=== PATIENT | female | born 1945 | race Caucasian/White ===

== ENCOUNTER 2018-12-18 13:53 | Inpatient (IN) | payer MEDICARE, OTHER ==
--- NOTE | 2018-12-18 14:05 | ED ---
Altered Mental Status HPI - General Stated Complaint: Altered Mental Status Time Seen by Provider: 12/18/18 14:04 Source: RN notes reviewed, old records reviewed Limitations: altered mental status - History of Present Illness Initial Comments: This is a 71-year-old female the ER for evaluation. Patient resents today for evaluation regarding altered mental status not acting appropriately. Patient is a poor historian unable to history. EMS states there unable to get history from patient. History obtained from EMS and patient's prior charting. MD Complaint: altered mental status (As well as difficulty breathing) -: unknown Severity: severe Consistency of Symptoms: getting worse Context: COPD Associated Symptoms: shortness of breath, weakness Treatments Prior to Arrival: IV fluid - Related Data Home Medications Medication Instructions Recorded Confirmed No Known Home Medications 12/18/18 12/18/18 Allergies Allergy/AdvReac Type Severity Reaction Status Date / Time No Known Allergies Allergy Verified 12/18/18 14:37 Review of Systems ROS Statement: Those systems with pertinent positive or pertinent negative responses have been documented in the HPI. ROS Other: All systems not noted in ROS Statement are negative. General Exam Limitations: altered mental status General appearance: alert, anxious, in distress Head exam: Present: atraumatic, normocephalic, normal inspection Eye exam: Present: normal appearance, PERRL, EOMI. Absent: scleral icterus, conjunctival injection, periorbital swelling ENT exam: Present: normal exam, mucous membranes moist Neck exam: Present: normal inspection. Absent: tenderness, meningismus, lymphadenopathy Respiratory exam: Present: respiratory distress, wheezes, accessory muscle use, decreased breath sounds, prolonged expiratory. Absent: rales, rhonchi, stridor Cardiovascular Exam: Present: regular rate, normal rhythm, normal heart sounds. Absent: systolic murmur, diastolic murmur, rubs, gallop, clicks GI/Abdominal exam: Present: soft, normal bowel sounds. Absent: distended, tenderness, guarding, rebound, rigid Extremities exam: Present: normal inspection, full ROM, normal capillary refill. Absent: tenderness, pedal edema, joint swelling, calf tenderness Back exam: Present: normal inspection Neurological exam: Present: alert, oriented X3, CN II-XII intact Psychiatric exam: Present: normal affect, normal mood Skin exam: Present: warm, dry, intact, normal color. Absent: rash Course Vital Signs 12/18/18 12/18/18 12/18/18 14:00 14:14 14:29 Temperature 97.9 F Pulse Rate 95 Respiratory 16 Rate Blood Pressure 173/84 O2 Sat by Pulse 81 L 91 L 98 Oximetry 12/18/18 15:50 Temperature Pulse Rate 88 Respiratory 17 Rate Blood Pressure 148/124 O2 Sat by Pulse 95 Oximetry - Reevaluation(s) Reevaluation #1: 12/18/18 16:04 Medical record reviewed Reevaluation #2: 12/18/18 16:04 No real improvement breathing treatment Medical Decision Making - Medical Decision Making 73 female the ER for evaluation. Patient does say for evaluation regarding shortness of breath. Significant COPD, smoking history. Patient be admitted for COPD with hypoxia and altered mental status, and NSTEMI. - Lab Data Result diagrams: 12/18/18 14:55 12/18/18 14:55 Lab Results 12/18/18 12/18/18 12/18/18 Range/Units 14:55 14:55 14:55 WBC 10.4 (3.8-10.6) k/uL RBC 5.72 H (3.80-5.40) m/uL Hgb 16.2 H (11.4-16.0) gm/dL Hct 53.4 H (34.0-46.0) % MCV 93.3 (80.0-100.0) fL MCH 28.3 (25.0-35.0) pg MCHC 30.4 L (31.0-37.0) g/dL RDW 15.8 H (11.5-15.5) % Plt Count 405 (150-450) k/uL Neutrophils % 87 % Lymphocytes % 6 % Monocytes % 6 % Eosinophils % 0 % Basophils % 0 % Neutrophils # 9.0 H (1.3-7.7) k/uL Lymphocytes # 0.6 L (1.0-4.8) k/uL Monocytes # 0.6 (0-1.0) k/uL Eosinophils # 0.0 (0-0.7) k/uL Basophils # 0.0 (0-0.2) k/uL Hypochromasia Moderate Sodium 138 (137-145) mmol/L Potassium 4.2 (3.5-5.1) mmol/L Chloride 94 L (98-107) mmol/L Carbon Dioxide 38 H (22-30) mmol/L Anion Gap 6 mmol/L BUN 20 H (7-17) mg/dL Creatinine 0.34 L (0.52-1.04) mg/dL Est GFR (CKD-EPI)AfAm >90 (>60 ml/min/1.73 sqM) Est GFR (CKD-EPI)NonAf >90 (>60 ml/min/1.73 sqM) Glucose 110 H (74-99) mg/dL Calcium 9.2 (8.4-10.2) mg/dL Magnesium 1.8 (1.6-2.3) mg/dL Total Bilirubin 1.2 (0.2-1.3) mg/dL AST 19 (14-36) U/L ALT 19 (9-52) U/L Alkaline Phosphatase 63 (38-126) U/L Troponin I (0.000-0.034) ng/mL NT-Pro-B Natriuret Pep 3750 pg/mL Total Protein 6.5 (6.3-8.2) g/dL Albumin 2.9 L (3.5-5.0) g/dL 12/18/18 Range/Units 14:55 WBC (3.8-10.6) k/uL RBC (3.80-5.40) m/uL Hgb (11.4-16.0) gm/dL Hct (34.0-46.0) % MCV (80.0-100.0) fL MCH (25.0-35.0) pg MCHC (31.0-37.0) g/dL RDW (11.5-15.5) % Plt Count (150-450) k/uL Neutrophils % % Lymphocytes % % Monocytes % % Eosinophils % % Basophils % % Neutrophils # (1.3-7.7) k/uL Lymphocytes # (1.0-4.8) k/uL Monocytes # (0-1.0) k/uL Eosinophils # (0-0.7) k/uL Basophils # (0-0.2) k/uL Hypochromasia Sodium (137-145) mmol/L Potassium (3.5-5.1) mmol/L Chloride (98-107) mmol/L Carbon Dioxide (22-30) mmol/L Anion Gap mmol/L BUN (7-17) mg/dL Creatinine (0.52-1.04) mg/dL Est GFR (CKD-EPI)AfAm (>60 ml/min/1.73 sqM) Est GFR (CKD-EPI)NonAf (>60 ml/min/1.73 sqM) Glucose (74-99) mg/dL Calcium (8.4-10.2) mg/dL Magnesium (1.6-2.3) mg/dL Total Bilirubin (0.2-1.3) mg/dL AST (14-36) U/L ALT (9-52) U/L Alkaline Phosphatase (38-126) U/L Troponin I 0.296 H* (0.000-0.034) ng/mL NT-Pro-B Natriuret Pep pg/mL Total Protein (6.3-8.2) g/dL Albumin (3.5-5.0) g/dL - EKG Data -: EKG Interpreted by Me (EKG shows sinus rhythm rate of 94, ID [id number], QRS 84, QTc 480) - Radiology Data Radiology results: report reviewed (Chest x-rays negative for acute disease), image reviewed Critical Care Time Critical Care Time: Yes Total Critical Care Time: 31 Disposition Clinical Impression: Altered mental status, Hypoxia, Acute exacerbation of COPD with asthma, Elevated troponin Disposition: ADMITTED IP TO THIS HOSP Condition: Serious Is patient prescribed a controlled substance at d/c from ED?: No Referrals: None,Stated [Primary Care Provider] - 1-2 days
[2018-12-18] MEDS ORDERED: ALBUTEROL NEBULIZED 2.5 MG/3 ML INHALATION STA (14:39)
[2018-12-18] MEDS ORDERED: IPRATROPIUM 0.5 MG/2.5 ML NEBU INHALATION STA (14:39)
[2018-12-18] MEDS ORDERED: SODIUM CHLORIDE 0.9% 1,000 ML IV STA (14:39)
[2018-12-18 15:25] LABS: Basophils % (A) 0 %; Eosinophils % (A) 0 %; HCT 53.4 % (34.0-46.0); HGB 16.2 gm/dL (11.4-16.0); Hypochromasia Moderate; Lymphocytes # (A) 0.6 k/uL (1.0-4.8); Lymphocytes % (A) 6 %; MCH 28.3 pg (25.0-35.0); MCHC 30.4 g/dL (31.0-37.0); MCV 93.3 fL (80.0-100.0); Mean Platelet Volume 6.4; Monocytes # (A) 0.6 k/uL (0-1.0); Monocytes % (A) 6 %; Neutrophils % (A) 87 %; Platelet Count 405 k/uL (150-450); RBC 5.72 m/uL (3.80-5.40); RDW 15.8 % (11.5-15.5); WBC 10.4 k/uL (3.8-10.6)
--- NOTE | 2018-12-18 15:27 | XR ---
EXAMINATION TYPE: XR chest 2V DATE OF EXAM: 12/18/2018 COMPARISON: NONE HISTORY: Altered mental status. Short of breath TECHNIQUE: Frontal and lateral views of the chest are obtained. FINDINGS: There is coarse interstitial pulmonary density. There is no heart failure. Heart size is f airly normal. Thoracic aorta is atheromatous. There is pulmonary hyperinflation. Bony thorax appears intact. IMPRESSION: COPD and pulmonary fibrosis. Normal heart.
[2018-12-18 15:28] LABS: ALT 19 U/L (9-52); AST 19 U/L (14-36); Albumin 2.9 g/dL (3.5-5.0); Alkaline Phosphatase 63 U/L (38-126); Anion Gap 6 mmol/L; Blood Urea Nitrogen 20 mg/dL (7-17); Calcium 9.2 mg/dL (8.4-10.2); Carbon Dioxide 38 mmol/L (22-30); Chloride 94 mmol/L (98-107); Glucose 110 mg/dL (74-99); Magnesium 1.8 mg/dL (1.6-2.3); Potassium 4.2 mmol/L (3.5-5.1); Sodium 138 mmol/L (137-145); Total Bilirubin 1.2 mg/dL (0.2-1.3); Total Protein 6.5 g/dL (6.3-8.2)
[2018-12-18 15:49] LABS: INR 1.2 (<1.2); Partial Thromboplastin Time 22.9 sec (22.0-30.0); Prothrombin Time 12.3 sec (9.0-12.0)
[2018-12-18] MEDS: SODIUM CHLORIDE 0.9% 1,000 ML IV STA ×2 (15:50→17:04)
[2018-12-18] MEDS ORDERED: IPRATROPIUM-ALBUTEROL 3 ML NEB INHALATION STA (15:57)
[2018-12-18] MEDS ORDERED: ASPIRIN 81 MG PO STA (15:57)
[2018-12-18] MEDS ORDERED: methylPREDNISolone SOD SUCCI 125 MG/2 ML VIAL IV STA (15:57)
[2018-12-18] MEDS ORDERED: NITROGLYCERIN SL TABS 0.4 MG TAB SUBLINGUAL PRN (15:57)
[2018-12-18 16:17] LABS: D-Dimer 3.27 mg/L FEU (<0.60)
[2018-12-18] MEDS: SODIUM CHLORIDE 0.9% 1,000 ML IV SCH (17:07)
--- NOTE | 2018-12-18 17:40 | CT ---
EXAMINATION TYPE: CT angio chest DATE OF EXAM: 12/18/2018 5:27 PM COMPARISON: None HISTORY: AMS, COPD, Hypoxia CT DLP: 239.8 mGycm Automated exposure control for dose reduction was used. CONTRAST: CTA scan of the thorax is performed with IV Contrast, patient injected with 100 mL of Isovue 300, pul monary embolism protocol. There are 3-D post processed images.. FINDINGS: There is diffuse pulmonary emphysema. There is subpleural reticular nodular infiltrates in both upper lobes. Thoracic aorta is atheromatous. There is extensive irregular plaque in the descending thoraci c aorta. There is no aneurysm. There is no evidence of hemodynamic stenosis. Heart size is normal. Th ere is no pericardial effusion. There are enlarged bronchial lymph nodes that measure up to 2.2 cm bi laterally. There are paratracheal lymph nodes that measure up to 1 cm. I see no filling defects in the pulmonary arteries. There is extensive irregular plaque formation in the upper abdominal aorta. There is no pleural effus ion. The bony thorax is intact. I see no bony destructive process. IMPRESSION: NO EVIDENCE OF PULMONARY EMBOLISM. EXTENSIVE BILATERAL RETICULAR NODULAR PULMONARY SUBPLEURAL INFILTRATES. BILATERAL BRONCHIAL ADENOPATH Y. THIS COULD RELATE TO CHRONIC INFLAMMATORY DISEASE. EMPHYSEMA. 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
--- NOTE | 2018-12-18 17:43 | XR ---
EXAMINATION TYPE: XR shoulder complete LT DATE OF EXAM: 12/18/2018 COMPARISON: NONE HISTORY: Shoulder pain TECHNIQUE: 3 views FINDINGS: There is significant deformity of the humeral head consistent with an old healed fracture. I see no definite acute fracture. There is osteopenia. IMPRESSION: Old humeral neck fracture. No acute fracture seen.
[2018-12-18] MEDS: methylPREDNISolone SOD SUCCI 125 MG/2 ML VIAL IV SCH ×2 (18:30→23:43)
[2018-12-18] MEDS: IPRATROPIUM-ALBUTEROL 3 ML NEB INHALATION SCH ×2 (19:09→20:47)
[2018-12-18] MEDS: METOPROLOL TARTRATE 25 MG TAB PO SCH (20:30)
--- NOTE | 2018-12-18 23:14 | P.HPIM ---
History of Present Illness H&P Date: 12/18/18 Chief Complaint: Shortness of breath and confusion Patient is a 71-year-old male with known history of smoking 1 pack per day was brought to the hospital by her family due to altered mental status. Apparently patient has been very confused and could not get out of her bed most of the time for the past one half week. Patient has been cough with congestion and shortness of breath. Patient has also been having diarrhea and feels very tired and forgetful recently. Patient also having back pain. Otherwise patient denied any complaints and is also a poor historian. Patient has been afebrile. Patient was found to be hypoxic with pulse ox 81% room air on admission. Having diffuse wheezing and also elevated d-dimer. Troponin 0.248 and 0.222 Chest x-ray showed COPD, emphysematous changes. CT angiogram of the chest is negative for pulmonary embolism. Extensive bilate ral reticulonodular pulmonary subpleural infiltrates. Bilateral bronchial adenopathy. This could be related to chronic inflammatory disease. Emphysema. 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 WBC 10.4, hemoglobin 16 BNP 3750 Review of Systems Constitutional: Patient denies any fever or chills . Generalized weakness.. Abdomen: Patient denied nausea vomiting and diarrhea and abdominal pain. Cardiovascular: Patient denies any chest pain or short of breath no palpitations. Respiratory: Cough with sputum production. And shortness of breath. Complete review of systems could not be obtained from the patient. Past Medical History Past Medical History: No Reported History History of Any Multi-Drug Resistant Organisms: None Reported Past Surgical History: Hysterectomy Past Psychological History: No Psychological Hx Reported Smoking Status: Current every day smoker Past Alcohol Use History: Rare Past Drug Use History: None Reported - Past Family History Daughter(s) Additional Family Medical History / Comment(s): gallbladder removed Medications and Allergies Home Medications Medication Instructions Recorded Confirmed Type No Known Home Medications 12/18/18 12/18/18 History Allergies Allergy/AdvReac Type Severity Reaction Status Date / Time No Known Allergies Allergy Verified 12/18/18 14:37 Physical Exam Vitals: Vital Signs Temp Pulse Resp BP Pulse Ox 12/18/18 16:32 88 12/18/18 16:28 98 18 154/75 98 12/18/18 16:03 82 03/16/19 15:50 88 17 148/124 95 12/18/18 14:29 98 12/18/18 14:14 91 L 12/18/18 14:00 97.9 F 95 16 173/84 81 L Intake and Output 12/18/18 12/18/18 12/18/18 06:59 14:59 22:59 Other: Weight 54.431 kg PHYSICAL EXAMINATION: Patient is lying in the bed comfortably, no acute distress, awake alert and or iented. Poor historian.. HEENT: Normocephalic. Neck is supple. Pupils reactive. Nostrils clear. Oral cavity is moist. Ears reveal no drainage. Neck reveals no JVD, carotid bruits, or thyromegaly. CHEST EXAMINATION: Trachea is central. Symmetrical expansion. Bilateral diffuse wheezing and scattered rhonchi.. CARDIAC: Normal S1, S2 with no gallops. No murmurs ABDOMEN: Soft. Bowel sounds normal. No organomegaly. No abdominal bruits. Extremities: reveal no edema. No clubbing or cyanosis Neurologically awake, alert, oriented x2-3 with well-coordinated movements. No focal deficits noted Skin: No rash or skin lesions. Psychiatric: Flat affect and refuse to communicate. Musculoskeletal: No joint swelling or deformity. Normal range of motion. Results CBC & Chem 7: 12/18/18 14:55 12/18/18 14:55 Labs: Abnormal Lab Results - Last 24 Hours (Table) 12/18/18 12/18/18 12/18/18 Range/Units 14:55 14:55 14:55 RBC 5.72 H (3.80-5.40) m/uL Hgb 16.2 H (11.4-16.0) gm/dL Hct 53.4 H (34.0-46.0) % MCHC 30.4 L (31.0-37.0) g/dL RDW 15.8 H (11.5-15.5) % Neutrophils # 9.0 H (1.3-7.7) k/uL Lymphocytes # 0.6 L (1.0-4.8) k/uL PT 12.3 H (9.0-12.0) sec INR 1.2 H (<1.2) D-Dimer 3.27 H (<0.60) mg/L FEU Chloride 94 L (98-107) mmol/L Carbon Dioxide 38 H (22-30) mmol/L BUN 20 H (7-17) mg/dL Creatinine 0.34 L (0.52-1.04) mg/dL Glucose 110 H (74-99) mg/dL Troponin I (0.000-0.034) ng/mL Albumin 2.9 L (3.5-5.0) g/dL 12/18/18 Range/Units 14:55 RBC (3.80-5.40) m/uL Hgb (11.4-16.0) gm/dL Hct (34.0-46.0) % MCHC (31.0-37.0) g/dL RDW (11.5-15.5) % Neutrophils # (1.3-7.7) k/uL Lymphocytes # (1.0-4.8) k/uL PT (9.0-12.0) sec INR (<1.2) D-Dimer (<0.60) mg/L FEU Chloride (98-107) mmol/L Carbon Dioxide (22-30) mmol/L BUN (7-17) mg/dL Creatinine (0.52-1.04) mg/dL Glucose (74-99) mg/dL Troponin I 0.296 H* (0.000-0.034) ng/mL Albumin (3.5-5.0) g/dL Thrombosis Risk Factor Assmnt - DVT/VTE Prophylaxis DVT/VTE Prophylaxis: Pharmacologic Prophylaxis ordered Assessment and Plan Assessment: Acute hypoxic respiratory failure secondary to COPD exacerbation. Acute purulent tracheobronchitis. Possible pneumonia Nicotine addiction Altered mental status possible metabolic encephalopathy Elevated troponin level. Possible demand mismatch. Elevated d-dimer. CTA is negative for any pulmonary embolism area DVT prophylaxis with heparin subcu Plan: Patient be continued on IV hydration. Continue with duo nebs and IV steroids and antibiotics in the form of azithromycin. Trend troponins. 2-D echocardiogram was ordered. Continue to follow closely. Pulmonary was consulted. Further admissions based on the clinical course. Discussed with the family at bedside in detail. Time with Patient: Greater than 30
[2018-12-18] MEDS: AZITHROMYCIN 500 MG TAB PO SCH (23:43)
[2018-12-18] MEDS: HEPARIN SODIUM,PORCINE 5,000 UNIT/ML 1 ML VIAL SQ SCH (23:43)
[2018-12-19] MEDS: SODIUM CHLORIDE 0.9% 1,000 ML IV SCH (01:34)
[2018-12-19 03:32] LABS: Basophils % (A) 0 %; Eosinophils % (A) 0 %; HCT 50.1 % (34.0-46.0); HGB 14.7 gm/dL (11.4-16.0); Hypochromasia Marked; Lymphocytes # (A) 0.3 k/uL (1.0-4.8); Lymphocytes % (A) 4 %; MCH 27.7 pg (25.0-35.0); MCHC 29.3 g/dL (31.0-37.0); MCV 94.6 fL (80.0-100.0); Mean Platelet Volume 6.4; Monocytes # (A) 0.2 k/uL (0-1.0); Monocytes % (A) 3 %; Neutrophils % (A) 93 %; Platelet Count 419 k/uL (150-450); RDW 15.7 % (11.5-15.5); WBC 7.6 k/uL (3.8-10.6)
[2018-12-19 03:46] LABS: ALT 25 U/L (9-52); AST 13 U/L (14-36); Albumin 2.7 g/dL (3.5-5.0); Alkaline Phosphatase 59 U/L (38-126); Anion Gap 7 mmol/L; Blood Urea Nitrogen 20 mg/dL (7-17); Calcium 8.6 mg/dL (8.4-10.2); Carbon Dioxide 31 mmol/L (22-30); Chloride 99 mmol/L (98-107); Cholesterol 118 mg/dL (<200); Glucose 187 mg/dL (74-99); HDL Cholesterol 28 mg/dL (40-60); LDL Cholesterol,Calculated 69 mg/dL (0-99); Potassium 4.4 mmol/L (3.5-5.1); Sodium 137 mmol/L (137-145); Total Bilirubin 0.8 mg/dL (0.2-1.3); Total Protein 5.8 g/dL (6.3-8.2); Triglycerides 103 mg/dL (<150)
[2018-12-19] MEDS: methylPREDNISolone SOD SUCCI 125 MG/2 ML VIAL IV SCH ×4 (06:07→23:42)
[2018-12-19] MEDS: IPRATROPIUM-ALBUTEROL 3 ML NEB INHALATION SCH ×4 (07:03→19:08)
[2018-12-19] MEDS: METOPROLOL TARTRATE 25 MG TAB PO SCH (08:21)
[2018-12-19] MEDS: HEPARIN SODIUM,PORCINE 5,000 UNIT/ML 1 ML VIAL SQ SCH ×3 (08:21→23:43)
[2018-12-19] MEDS: NICOTINE 21MG/24HR PATCH TRANSDERM SCH (08:21)
[2018-12-19] MEDS ORDERED: ASPIRIN 325 MG TAB PO SCH (09:00)
[2018-12-19] MEDS ORDERED: ASPIRIN 81 MG PO STA (11:13)
--- NOTE | 2018-12-19 11:50 | P.CRDCN ---
History of Present Illness Consult date: 12/19/18 Reason for Consult (text): Elevated troponins Chief complaint: Elevated tropinins History of present illness: HISTORY OF PRESENT ILLNESS AND PLAN: This is a 71-year-old female who presents in the emergency department for mental status changes, cough, shortness of breath for approximately one week. Patient is a poor historian. Patient was brought to the hospital by EMS but was unable to get history. Family currently at bedside. Family states patient has-been confused and ill for approximately one week. Family states patient is normally alert and oriented. Family states patient has no significant medical history. Family states patient smokes cigarettes, one pack per day for many years. Patient is unaware of where she is currently. Patient has no current complaints of chest pain, chest pressure, difficulty in breathing or discomfort. Patient not cooperative with interview, not cooperative with keeping on ordered oxygen. Patient is able to eat and drink, is working on eating breakfast. Lives with boyfriend of 30 years. SIGNIFICANT PAST MEDICAL HISTORY: None. Smoking one pack per day, per family. PAST SURGICAL HISTORY: See list. EKG shows sinus rhythm, PACs, left ventricular hypertrophy. Heart rate 90 beats per minute. Troponins positive x 3. 3 0.296@1500, 0.222@ 2100. 12/19/18 0.207 @ 0300 SIGNIFICANT LABORATORY VALUES: CBC = WBC at 7.6, hemoglobin 14.7, hematocrit 50.1, platelets 419. BMP = potassium 4.4, sodium 137, chloride 99, B1 20 creatinine 0.40. D dimer 3.27. Chest x-ray positive for fibrosis, positive for COPD. CT of chest negative for PE. Positive emphysema changes, positive nodules, positive bronchial adenopathy. 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 Patient has never followed with cardiology No recent echo. No recent stress testing. 1. Oxygen mismatch causing elevated troponin levels . No acute ischemic syndrome. 2. 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 Will optimize blood pressure control with beta nicolasa and add statin. 3. Chronic infiltrate disease rule out pulmonary fibrosis versus malignancy. Seek pulmonology consult. 4. Mental status changes, seek neurology consult. PLAN: Order echocardiogram. Decrease aspirin to 81 mg daily. Add Lipitor 20 mg @ bed time. Increase metoprolol tartrate to 50 mg twice daily. Continue same all other medical and medication regime. Thank you kindly for this consult. Heart healthy diet. Will follow, please call with questions or concerns. Nurse Practitioner note has been reviewed by Physician. Signing provider agrees with the documented findings, assessment and plan of care. Review of Systems REVIEW OF SYSTEMS: CONSTITUTIONAL: Denies fever. Denies chills. EYES: Denies blurred vision. Denies blurred vision or vision changes. Denies eye pain. EARS, NOSE, MOUTH & THROAT: Denies headache. Denies sore throat. Denies ear pain Denies hemoptysis. CARDIOVASCULAR: Denies chest pain. Denies shortness of breath. Denies orthopnea. Denies PND. Denies palpitations. RESPIRATORY: Denies cough. Denies shortness of breath. GASTROINTESTINAL: Denies abdominal pain or distention. Denies diarrhea. Denies constipation. Denies nausea. Denies vomiting. MUSCULOSKELETAL: Denies myalgias. INTEGUMENTARY: Denies pruitis. Denies rash. ENDOCRINE: Denies fatigue. Denies weight change. Denies polydipsia. Denies polyurina Denies heat/cold intolerance. GENITOURINARY:Denies burning, hematuria or urgency with micturation. HEMATOLOGIC: Denies history of anemia. Denies bleeding. NEUROLOGIC: Denies numbness. Denies tingling. Denies weakness. PSYCHIATRIC: Denies anxiety. Denies depression. Remains very confused. Past Medical History Past Medical History: No Reported History History of Any Multi-Drug Resistant Organisms: None Reported Past Surgical History: Hysterectomy Past Anesthesia/Blood Transfusion Reactions: No Reported Reaction Past Psychological History: No Psychological Hx Reported Smoking Status: Current every day smoker Past Alcohol Use History: Rare Past Drug Use History: None Reported - Past Family History Daughter(s) Additional Family Medical History / Comment(s): gallbladder removed Medications and Allergies Home Medications Medication Instructions Recorded Confirmed Type No Known Home Medications 12/18/18 12/18/18 History Allergies Allergy/AdvReac Type Severity Reaction Status Date / Time No Known Allergies Allergy Verified 12/18/18 14:37 Physical Exam Vitals: Vital Signs Temp Pulse Pulse Resp BP BP Pulse Ox 12/19/18 10:54 92 12/19/18 08:00 98.8 F 93 20 127/56 92 L 12/19/18 07:21 96 12/19/18 07:06 89 L 12/19/18 07:05 89 12/19/18 04:00 97.8 F 88 18 138/71 90 L 12/19/18 00:00 98.2 F 94 18 137/72 94 L 12/18/18 20:54 108 H 12/18/18 20:52 104 H 12/18/18 20:00 98.6 F 118 H 20 152/80 91 L 12/18/18 18:22 97.9 F 110 H 20 160/69 94 L 12/18/18 17:07 111 H 16 139/68 93 L 12/18/18 16:32 88 12/18/18 16:28 98 18 154/75 98 12/18/18 16:03 82 12/18/18 15:50 88 17 148/124 95 12/18/18 14:29 98 12/18/18 14:14 91 L 12/18/18 14:00 97.9 F 95 16 173/84 81 L Intake and Output 12/18/18 12/19/18 12/19/18 22:59 06:59 14:59 Intake Total 240 Balance 240 Intake: Oral 240 Other: # Voids 1 1 Weight 38.5 kg PHYSICAL EXAM: VITAL SIGNS: GENERAL: Well developed, in no acute distress. Uncooperative with interview. HEENT: Head is atraumatic, normocephalic. Pupils are equal, round. Extra ocular movements intact. Mucous membranes moist. Neck supple. No JVD. No carotid bruit. No thyromegaly. LUNGS: Clear to auscultation no wheezes, rales or rhonchi. No chest wall tenderness on palpation or with deep breathing. HEART: Regular rate and rhythm, no rubs or gallops. S1 and S2 heard. Systolic I/ murmur at the base. ABDOMEN: Abdominal exam, WNL. Bowel sounds x4 quads. Soft, non-tender, without masses, organomegaly, or abdominal aorta enlargement. EXTREMITIES/VASCULAR: Extremities have easily palpable radial, femoral, dorsalis pedis and posterior tibial pulses. No cyanosis, calf tenderness. No BLE edema. NEUROLOGIC: Patient is awake, alert. Patient very confused, not able to answer questions appropriately. Unable to describe time, place or date. Results 12/19/18 03:14 03/17/19 03:14 Cardiac Enzymes 12/18/18 12/18/18 12/18/18 Range/Units 14:55 14:55 20:32 AST 19 (14-36) U/L Troponin I 0.296 H* 0.222 H* (0.000-0.034) ng/mL 12/19/18 12/19/18 Range/Units 03:14 03:14 AST 13 L (14-36) U/L Troponin I 0.207 H* (0.000-0.034) ng/mL Coagulation 12/18/18 Range/Units 14:55 PT 12.3 H (9.0-12.0) sec APTT 22.9 (22.0-30.0) sec Lipids 12/19/18 Range/Units 03:14 Triglycerides 103 (<150) mg/dL Cholesterol 118 (<200) mg/dL HDL Cholesterol 28 L (40-60) mg/dL CBC 12/18/18 12/19/18 Range/Units 14:55 03:14 WBC 10.4 7.6 (3.8-10.6) k/uL RBC 5.72 H 5.30 (3.80-5.40) m/uL Hgb 16.2 H 14.7 (11.4-16.0) gm/dL Hct 53.4 H 50.1 H (34.0-46.0) % Plt Count 405 419 (150-450) k/uL Comprehensive Metabolic Panel 12/18/18 12/19/18 Range/Units 14:55 03:14 Sodium 138 137 (137-145) mmol/L Potassium 4.2 4.4 (3.5-5.1) mmol/L Chloride 94 L 99 (98-107) mmol/L Carbon Dioxide 38 H 31 H (22-30) mmol/L BUN 20 H 20 H (7-17) mg/dL Creatinine 0.34 L 0.40 L (0.52-1.04) mg/dL Glucose 110 H 187 H (74-99) mg/dL Calcium 9.2 8.6 (8.4-10.2) mg/dL AST 19 13 L (14-36) U/L ALT 19 25 (9-52) U/L Alkaline Phosphatase 63 59 (38-126) U/L Total Protein 6.5 5.8 L (6.3-8.2) g/dL Albumin 2.9 L 2.7 L (3.5-5.0) g/dL Current Medications Generic Name Dose Route Start Last Admin Trade Name Crescencioq PRN Reason Stop Dose Admin Albuterol/Ipratropium 3 ml 12/18/18 16:00 12/19/18 10:53 Duoneb 0.5 Mg-3 Mg/3 Ml Soln INHALATION 3 ml RT-QID CHAC[facility]A Administration Aspirin 325 mg 12/19/18 09:00 12/19/18 08:21 Aspirin PO 325 mg DAILY CH[facility] Administration Atorvastatin Calcium 20 mg 12/19/18 21:00 Lipitor PO HS CH[facility]A Azithromycin 500 mg 12/18/18 23:00 12/18/18 23:43 Zithromax PO 500 mg Q24H CH[facility]A Administration Heparin Sodium (Porcine) 5,000 unit 12/19/18 00:00 12/19/18 08:21 Heparin SQ 5,000 unit Q8HR [facility] Administration Sodium Chloride 1,000 mls @ 100 mls/hr 12/18/18 16:00 12/19/18 01:34 Saline 0.9% IV 100 mls/hr .Q10H [facility] Administration Methylprednisolone Sodium Succinate 60 mg 12/18/18 18:00 12/19/18 06:07 Solu-Medrol IV 60 mg Q6HR [facility] Administration Metoprolol Tartrate 25 mg 12/18/18 21:00 12/19/18 08:21 Lopressor PO Not Given BID CH[facility]A Nicotine 1 patch 12/19/18 09:00 12/19/18 08:21 Habitrol 21mg/24hr Patch TRANSDERM 1 patch DAILY [facility] Administration Nitroglycerin 0.4 mg 12/18/18 15:57 Nitrostat SUBLINGUAL Q5M PRN Chest Pain Intake and Output 12/18/18 12/19/18 12/19/18 22:59 06:59 14:59 Intake Total 240 Balance 240 Intake: Oral 240 Other: # Voids 1 1 Weight 38.5 kg 12/19/18 03:14 12/19/18 03:14 - EKG Interpretation EKG: sinus rhythm (Pac's, Left ventricular hypertrophy. HR 98.) Assessment and Plan Plan: 1. Oxygen mismatch causing elevated troponin levels . No acute ischemic syndrome. 2. 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 Will optimize blood pressure control with beta nicolasa and add statin. 3. Chronic infiltrate disease rule out pulmonary fibrosis versus malignancy. Seek pulmonology consult. 4. Mental status changes, seek neurology consult. PLAN: Order echocardiogram. Decrease aspirin to 81 mg daily. Add Lipitor 20 mg @ bed time. Increase metoprolol tartrate to 50 mg twice daily. Continue same all other medical and medication regime. Thank you kindly for this consult. Heart healthy diet. Will follow, please call with questions or concerns.
--- NOTE | 2018-12-19 12:41 | CT ---
EXAMINATION TYPE: CT brain wo con DATE OF EXAM: 12/19/2018 COMPARISON: None HISTORY: altered mental status CT DLP: 1099.4 mGycm Automated exposure control for dose reduction was used. Helical acquisition through the brain. FINDINGS: There is no hemorrhage or hydrocephalus. Cortical atrophy is noted. Focal low density in the head of the caudate on the right compatible with lacunar infarct, likely chronic. White matter low-attenuatio n likely due to chronic small vessel ischemia. There are cerebral vascular calcifications. Calvarium is intact. Paranasal sinuses and mastoid air cells as visualized are unremarkable. Orbits show symmet inés appearance. IMPRESSION: NO ACUTE ABNORMALITY. AGE-RELATED CHANGES OF ATROPHY AND PROBABLE CHRONIC SMALL VESSEL ISCHEMIA, FOLL OW-UP INDICATED.
[2018-12-19 13:07] LABS: ABG Base Excess 10.1 mmol/L; ABG HCO3 35 mmol/L (21-25); ABG Oxygen Saturation 85.5 % (94-97); ABG PCO2 57 mmHg (35-45); ABG TCO2 37 mmol/L (19-24)
[2018-12-19 13:14] LABS: ABG PO2 53 mmHg (83-108)
[2018-12-19 13:24] VITALS: BMI 17.6
--- NOTE | 2018-12-19 15:45 | CONS ---
CONSULTATION This is a consultation dated December 19, 2018. REASON FOR CONSULTATION: Altered mental status and shortness of breath. This is a 73-year-old female who is apparently someone who does not go to doctors. She apparently has not gone to doctor in years. She apparently has no major medical problems as far she knows and takes no medications at home. She drinks pop every day and she smokes about a pack of cigarettes every day and has been doing so for more than 50 years according to her family member. The patient apparently presented to the emergency room with complaints of shortness of breath. What actually brought her in was confusion and disorientation. The patient was seen in the emergency room, admitted with a diagnosis of mental status changes and dyspnea. The dyspnea, likely related to underlying COPD, although she has never seen a doctor including a lung physician. She does not use oxygen at home, take any breathing treatments or inhalers. In fact she takes no medications at home. Today in the room, she is lying on her right side. Nasal O2 was noted. She is not having any faith respiratory distress. I do not hear any audible wheezing. There is no conversational dyspnea. Much of the history is provided by the family members including her boyfriend and daughter. HOME MEDICATIONS: None. ALLERGIES: None. Medical history is negative or not known. No history of any surgical procedures as far as we can tell. FAMILY AND OCCUPATIONAL HISTORY: Noncontributory. SOCIAL HISTORY: Positive for 1 pack of cigarettes a day for more than 50+ years. In addition, she drinks pop on a daily basis. REVIEW OF SYSTEMS: Is difficult to obtain, but apparently her major issues are mental status changes and shortness of breath. CONSTITUTIONAL: Negative. NEUROLOGIC: Mental status changes. HEENT: Negative. CARDIOVASCULAR: Negative. PULMONARY: Shortness of breath. GI: Negative. : Negative. RHEUMATOLOGIC: Negative. IMMUNOLOGIC: Negative. DERMATOLOGIC: Negative. ENDOCRINOLOGIC: Negative. Current vital signs are reviewed. Vital signs include temperature 98.6, heart rate 85, respiratory rate 20, blood pressure 149/64, mean 89 and 2 L, saturation 92%. Appears in no acute distress. Lying on the right side. No evidence of any acute respiratory difficulty. HEENT examination is grossly unremarkable. Nasal O2 noted. NECK: Supple. Full range of motion. No adenopathy. Cardiovascular examination reveals regular rhythm rate. S1, S2 normal. No S3, S4, or murmur. Lungs reveal a few scattered expiratory rhonchi. Breath sounds are diminished. Slight prolongation on forced maneuver. No crackles. Abdomen is soft. Bowel sounds are heard. Extremities are intact. No cyanosis, clubbing, or edema. Skin without rash. Neurologic examination is brief but nonfocal. LABORATORY DATA: Reviewed. White count 7.6, hemoglobin 14.7, hematocrit 50.1, platelet count 419,000. PT 12.3, INR 1.2, PTT 22.9. D-dimer 3.27. Sodium 137, potassium 4.4, chloride 99, CO2 of 31, anion gap is 7, BUN and creatinine were 20 and 0.4. Troponins were 0.296, 0.22 and 0.207. N terminal proBNP 3750. Albumin is 2.7. Chest x-ray shows changes of COPD. There is also some interstitial changes present, which could be interstitial fibrosis and/or interstitial edema. Given the N-terminal proBNP and elevated troponins, interstitial edema certainly a possibility. Chest CT shows no evidence of pulmonary embolism. There was extensive bilateral reticular nodular pulmonary and subpleural infiltrates. This could relate to chronic inflammatory disease. There is also emphysematous changes. Cardiology is seeing the patient. A blood gas has been ordered as has been a CT scan of the brain without contrast. Medications are reviewed. ASSESSMENT: 1. Mental status changes, which may be metabolic or structural in nature. A blood gas and a CT scan of the brain had been ordered. 2. History of ongoing heavy tobacco use, rule out chronic obstructive pulmonary disease with mild to moderate COPD exacerbation. 3. Rule out myocardial ischemia. 4. Possible interstitial fibrosis versus interstitial edema. 5. Noncompliance with medical care as the patient has not been to a doctor in years. PLAN: The patient's medications are appropriate. The patient is on short-acting beta agonist, short-acting muscarinic antagonist as well as long-acting beta agonist and inhaled corticosteroids. The patient is also getting systemic corticosteroids. The patient is also getting Zithromax 500 mg a day. We will await the results of the blood gas and a CT scan of the brain. Additional recommendations and suggestions are forthcoming. Cardiology is also seeing the patient as well to deal with the elevated troponins. We will continue to follow. MMODL / IJN: [id number] /
[2018-12-19] MEDS: FORMOTEROL FUMARATE 20 MCG/2 ML NEBU INHALATION SCH (19:08)
[2018-12-19] MEDS: BUDESONIDE 1 MG/2 ML NEBU INHALATION SCH (19:08)
[2018-12-19] MEDS: METOPROLOL TARTRATE 50 MG TAB PO SCH (20:06)
[2018-12-19] MEDS: ATORVASTATIN 20 MG TAB PO SCH (20:06)
[2018-12-19] MEDS: AZITHROMYCIN 500 MG TAB PO SCH (23:42)
[2018-12-20] MEDS: methylPREDNISolone SOD SUCCI 125 MG/2 ML VIAL IV SCH ×4 (06:25→23:48)
[2018-12-20] MEDS: NICOTINE 21MG/24HR PATCH TRANSDERM SCH (08:23)
[2018-12-20] MEDS: HEPARIN SODIUM,PORCINE 5,000 UNIT/ML 1 ML VIAL SQ SCH ×3 (08:24→23:49)
[2018-12-20] MEDS: METOPROLOL TARTRATE 50 MG TAB PO SCH ×2 (08:24→19:50)
[2018-12-20] MEDS: SODIUM CHLORIDE 0.9% 1,000 ML IV SCH (08:31)
[2018-12-20] MEDS: FORMOTEROL FUMARATE 20 MCG/2 ML NEBU INHALATION SCH ×2 (09:14→20:54)
[2018-12-20] MEDS: BUDESONIDE 1 MG/2 ML NEBU INHALATION SCH ×2 (09:14→20:54)
[2018-12-20] MEDS: IPRATROPIUM-ALBUTEROL 3 ML NEB INHALATION SCH ×4 (09:14→20:54)
--- NOTE | 2018-12-20 10:00 | ECHOF ---
Referral Reason:CHF MEASUREMENTS -------- HEIGHT: 167.6 cm WEIGHT: 49.9 kg BP: 147/71 IVSd: 1.3 cm (0.6 - 1.1) LVIDd: 4.2 cm (3.9 - 5.3) LVPWd: 1.1 cm (0.6 - 1.1) IVSs: 1.2 cm LVIDs: 3.6 cm LVPWs: 1.5 cm LAESV Index (A-L): 35.44 ml/m Ao Diam: 2.2 cm (2.0 - 3.7) AV Cusp: 1.1 cm (1.5 - 2.6) LA Diam: 2.4 cm (2.7 - 3.8) MV EXCURSION: 15.965 mm (> 18.000) MV EF SLOPE: 113 mm/s (70 - 150) EPSS: 1.1 cm MV E Jose: 0.73 m/s MV DecT: 128 ms MV A Jose: 0.65 m/s MV E/A Ratio: 1.13 AV maxP.08 mmHg AV meanP.47 mmHg RAP: 5.00 mmHg RVSP: 22.55 mmHg FINDINGS -------- Sinus rhythm. This was a technically difficult study with suboptimal views. The left ventricular size is normal. There is mild concentric left ventricular hypertrophy. Overa ll left ventricular systolic function is mild-moderately impaired with, an EF between 40 - 45 %. Ba reno inferior LV wall motion is hypokinetic. Basal inferoseptal LV wall motion is hypokinetic. M id inferior LV wall motion is hypokinetic. Apical inferior LV wall motion is hypokinetic. The right ventricle is normal in size. LA is moderately dilated 34-39 ml/m2 The right atrium is normal in size. Lumason used There is mild aortic valve sclerosis. Peak/mean gradient across the Aortic Valve is 9.08mmHg / 5.47 mmHg. The mitral valve leaflets are mildly thickened. Mild mitral regurgitation is present. Mild tricuspid regurgitation present. There is no evidence of pulmonary hypertension. The right v entricular systolic pressure, as measured by Doppler, is 22.55mmHg. There is no pulmonic regurgitation present. The aortic root size is normal. IVC Not well visulized. There is no pericardial effusion. CONCLUSIONS -------- 1. Sinus rhythm. 2. This was a technically difficult study with suboptimal views. 3. The left ventricular size is normal. 4. There is mild concentric left ventricular hypertrophy. 5. Overall left ventricular systolic function is mild-moderately impaired with, an EF between 40 - 45 %. 6. Basal inferior LV wall motion is hypokinetic. 7. Basal inferoseptal LV wall motion is hypokinetic. 8. Mid inferior LV wall motion is hypokinetic. 9. Apical inferior LV wall motion is hypokinetic. 10. LA is moderately dilated 34-39 ml/m2 11. Lumason used 12. There is mild aortic valve sclerosis. 13. Peak/mean gradient across the Aortic Valve is 9.08mmHg / 5.47mmHg. 14. The mitral valve leaflets are mildly thickened. 15. Mild mitral regurgitation is present. 16. Mild tricuspid regurgitation present. 17. There is no evidence of pulmonary hypertension. 18. There is no pulmonic regurgitation present. 19. The aortic root size is normal. 20. IVC Not well visulized. 21. There is no pericardial effusion. [employer]INTENANCE INSPECTOR: Lu Rubalcava RDCS
--- NOTE | 2018-12-20 10:28 | PN ---
PROGRESS NOTE Mrs. Liliam Talbot appears to be less confused today. She is in sinus rhythm resting. Her EKG revealed sinus mechanism with a precordial T-wave inversion, nonspecific changes. Troponin levels do not suggest any significant evidence of myocardial injury. Her CT scan reveals some atherosclerotic changes involving the descending thoracic aorta with possible chronic dissection. However, blood pressure control is optimal. Her troponin profile was 0.29 and 0.22 and the trend does not suggest myocardial injury. Could have been an oxygen mismatch since patient was found somewhat unresponsive. We will obtain echocardiogram and assess LV function. For now we will continue the dose of beta nicolasa as well as subcu heparin and atorvastatin and 81 mg of aspirin and based on echocardiogram, I will make further recommendations. She is also being evaluated from a pulmonary standpoint. Possibility of chronic inflammatory disease also should be considered. MMODL / IJN: [id number] /
--- NOTE | 2018-12-20 17:13 | P.PN ---
Subjective Progress Note Date: 12/20/18 Principal diagnosis: Altered mental status and shortness of breath This is 73-year-old white female patient who does not regularly see a doctor, patient has no history of major medical problems. Patient came in to the hospital on 12/18/2018 for alteration in mental status, and shortness of breath. She was quite confused and disoriented. Not normally on any oxygen at home, she takes no breathing treatments or inhalers. His x-ray showed changes consistent with COPD, in addition to some interstitial changes that could be related to interstitial fibrosis and/or interstitial edema. Chest CT showed no evidence of pulmonary embolism, and showed extensive bilateral reticulonodular pulmonary and subpleural infiltrates that could relate to chronic inflammatory disease. Patient did have elevation of her troponins, at 0.296, 0.222, and 0.207, proBNP was elevated at 3750. Blood gas was obtained, and showed chronic hypercapnic respiratory failure, metabolic compensation, pO2 of 53, pCO2 57, pH of 7.40, this was done on FiO2 of 20%, today on 12/20/2001 patient seen in [facility], she is awake and alert, in no acute distress, currently on 4 L of oxygen per nasal cannula and her pulse ox is 90%, afebrile, hemodynamically stable, states her breathing is easier, denies any chest pain. Echocardiogram showed mild to moderate . Metabolic left surgical systolic function with an EF between 40-45%, mild aortic valve sclerosis, mild MR, mild TR, no evidence of pulmonary hypertension. Is on breathing treatments, she is on oral antibiotics, and IV steroids, and on today's exam patient's lung sounds reveal a few scattered wheezes, but overall improved compared to previous exams. She is awake and alert, oriented 3, in no acute distress. Objective - Vital Signs Vital signs: Vital Signs Temp 97.5 F L 12/20/18 12:00 Pulse 84 12/20/18 13:25 Resp 22 12/20/18 12:00 BP 130/60 12/20/18 12:00 Pulse Ox 90 L 12/20/18 13:06 Intake & Output 12/19/18 12/20/18 12/20/18 18:59 06:59 18:59 Intake Total 1160 360 702 Balance 1160 360 702 Weight 49.6 kg 49.9 kg Intake: Intake, IV Titration 800 Amount Sodium Chloride 0.9% 1, 800 000 ml @ 100 mls/hr IV . Q10H [facility] Rx#:[id number] Oral 360 360 706 Other: # Voids 1 2 2 - Exam GENERAL EXAM: Alert, pleasant, 83-year-old white female on 2 L of oxygen per nasal cannula comfortable in no apparent distress. HEAD: Normocephalic/atraumatic. EYES: Normal reaction of pupils, equal size. Conjunctiva pink, sclera white. NOSE: Clear with pink turbinates. THROAT: No erythema or exudates. NECK: No masses, no JVD, no thyroid enlargement, no adenopathy. CHEST: No chest wall deformity. Symmetrical expansion. LUNGS: Equal air entry with a few scattered wheezes, CVS: Regular rate and rhythm, normal S1 and S2, no gallops, no murmurs, no rubs ABDOMEN: Soft, nontender. No hepatosplenomegaly, normal bowel sounds, no guarding or rigidity. EXTREMITIES: No clubbing, no edema, no cyanosis, 2+ pulses and upper and lower extremities. MUSCULOSKELETAL: Muscle strength and tone normal. SPINE: No scoliosis or deformity SKIN: No rashes CENTRAL NERVOUS SYSTEM: Alert and oriented -3. No focal deficits, tone is normal in all 4 extremities. PSYCHIATRIC: Alert and oriented -3. Appropriate affect. Intact judgment and insight. - Labs CBC & Chem 7: 12/19/18 03:14 12/19/18 03:14 Assessment and Plan Plan: Assessment #1. Acute exacerbation of chronic obstructive pulmonary disease #2. Altered mental status, CT brain showed no acute abnormality, age-related changes of atrophy and probable chronic small vessel ischemia. Alteration of mental status could be related to metabolic encephalopathy #3. Chronic and ongoing heavy tobacco use #4. Elevated troponin, patient was evaluated by cardiology, ruled out for acute myocardial injury #5. Possible interstitial fibrosis versus interstitial edema Plan: Tinea nebulas bronchodilators, oral antibiotics, IV steroids, patient is feeling better, she is more awake and alert, oriented 3, no complaints chest pain, no complaint of worsening shortness of breath, no acute events overnight, c ardiology consultation was noted. Anticipate further improvement. Likely cessation counseling was done I performed a history & physical examination of the patient and discussed their management with my nurse practitioner, Rosalee Boyle. I reviewed the nurse practitioner's note and agree with the documented findings and plan of care. Lung sounds are positive for some scattered wheezes. The findings and the impression was discussed with the patient. I attest to the documentation by the nurse practitioner. Time with Patient: Less than 30
[2018-12-20] MEDS ORDERED: LORazepam 2 MG/ML INJ IV PRN (18:30)
[2018-12-20] MEDS ORDERED: HALOPERIDOL LACTATE 5 MG/ML 1 ML VIAL IVP PRN (18:31)
[2018-12-20] MEDS: ATORVASTATIN 20 MG TAB PO SCH (19:50)
[2018-12-20] MEDS: AZITHROMYCIN 500 MG TAB PO SCH (23:48)
[2018-12-21] MEDS: methylPREDNISolone SOD SUCCI 125 MG/2 ML VIAL IV SCH ×4 (05:11→22:35)
[2018-12-21] MEDS: FORMOTEROL FUMARATE 20 MCG/2 ML NEBU INHALATION SCH ×2 (09:40→20:50)
[2018-12-21] MEDS: IPRATROPIUM-ALBUTEROL 3 ML NEB INHALATION SCH ×4 (09:40→20:43)
[2018-12-21] MEDS: BUDESONIDE 1 MG/2 ML NEBU INHALATION SCH ×2 (09:40→20:43)
[2018-12-21] MEDS: METOPROLOL TARTRATE 50 MG TAB PO SCH ×2 (10:26→20:24)
[2018-12-21] MEDS: NICOTINE 21MG/24HR PATCH TRANSDERM SCH (10:27)
[2018-12-21] MEDS: HEPARIN SODIUM,PORCINE 5,000 UNIT/ML 1 ML VIAL SQ SCH ×3 (10:27→22:28)
--- NOTE | 2018-12-21 12:33 | P.PN ---
Progress Note - Text Progress Note Date: 12/21/18 This patient came in with confusion disorientation and has history of smoking and COPD. Some of these issues have resolved. She still has confusion. Echocardiogram reveals evidence of wall motion abnormality with ejection fraction of 40-45%. Suggestive of chronic CAD with prior myocardial infarction. Clinically there is no evidence of acute ongoing ischemia and troponin profile does not suggest acute myocardial injury but probably in oxygen mismatch type situation. Vital signs are stable JVD is not evident S1 and S2 are normal. Short systolic murmur is noted. Lungs reveal diminished air entry bilaterally. No lower extremity edema of SIGNIFICANCE diminished pulses no focal motor deficits confusion evident. I am recommending that we will continue her current medical regimen which includes beta blockers. She is also on a statin agent. When she is ambulatory and most probably as an outpatient by Will consider stress testing. This patient's pulmonary status is also quite suboptimal. This is probably as a result of chronic smoking. She has some CO2 retention and still has some hypoxemia. Given her decreased LV function I'm recommending that we added losartan 50 mg daily to her regimen which would also optimize blood pressure control.
--- NOTE | 2018-12-21 13:09 | P.PN ---
Subjective Progress Note Date: 12/21/18 Principal diagnosis: Altered mental status and shortness of breath This is 73-year-old white female patient who does not regularly see a doctor, patient has no history of major medical problems. Patient came in to the hospital on 12/18/2018 for alteration in mental status, and shortness of breath. She was quite confused and disoriented. Not normally on any oxygen at home, she takes no breathing treatments or inhalers. His x-ray showed changes consistent with COPD, in addition to some interstitial changes that could be related to interstitial fibrosis and/or interstitial edema. Chest CT showed no evidence of pulmonary embolism, and showed extensive bilateral reticulonodular pulmonary and subpleural infiltrates that could relate to chronic inflammatory disease. Patient did have elevation of her troponins, at 0.296, 0.222, and 0.207, proBNP was elevated at 3750. Blood gas was obtained, and showed chronic hypercapnic respiratory failure, metabolic compensation, pO2 of 53, pCO2 57, pH of 7.40, this was done on FiO2 of 20%, today on 12/20/2001 patient seen in [facility] on selective care unit, she is awake and alert, in no acute distress, currently on 4 L of oxygen per nasal cannula and her pulse ox is 90%, afebrile, hemodynamically stable, states her breathing is easier, denies any chest pain. Echocardiogram showed mild to moderate . Metabolic left surgical systolic function with an EF between 40-45%, mild aortic valve sclerosis, mild MR, mild TR, no evidence of pulmonary hypertension. Is on breathing treatments, she is on oral antibiotics, and IV steroids, and on today's exam patient's lung sounds reveal a few scattered wheezes, but overall improved compared to previous exams. She is awake and alert, oriented 3, in no acute distress. On 12/21/2018 patient seen in follow-up on selective care unit, she sits up in the bed, in no acute distress, remains on 2 L of oxygen, pulse ox is between 92- 95%, she denies any breathing difficulty, lung sounds are diminished bilateral, no rhonchi, no wheezes Objective - Vital Signs Vital signs: Vital Signs Temp 97.5 F L 12/21/18 07:25 Pulse 80 12/21/18 09:58 Resp 18 12/21/18 07:25 BP 160/77 12/21/18 07:25 Pulse Ox 95 12/21/18 04:28 Intake & Output 12/20/18 12/21/18 12/21/18 18:59 06:59 18:59 Intake Total 702 120 Balance 702 120 Weight 48.9 kg Intake: Oral 702 120 Other: # Voids 2 1 0 - Exam GENERAL EXAM: Alert, pleasant, 83-year-old white female on 2 L of oxygen per nasal cannula comfortable in no apparent distress. HEAD: Normocephalic/atraumatic. EYES: Normal reaction of pupils, equal size. Conjunctiva pink, sclera white. NOSE: Clear with pink turbinates. THROAT: No erythema or exudates. NECK: No masses, no JVD, no thyroid enlargement, no adenopathy. CHEST: No chest wall deformity. Symmetrical expansion. LUNGS: Equal air entry with a few scattered wheezes, CVS: Regular rate and rhythm, normal S1 and S2, no gallops, no murmurs, no rubs ABDOMEN: Soft, nontender. No hepatosplenomegaly, normal bowel sounds, no guarding or rigidity. EXTREMITIES: No clubbing, no edema, no cyanosis, 2+ pulses and upper and lower extremities. MUSCULOSKELETAL: Muscle strength and tone normal. SPINE: No scoliosis or deformity SKIN: No rashes CENTRAL NERVOUS SYSTEM: Alert and oriented -3. No focal deficits, tone is normal in all 4 extremities. PSYCHIATRIC: Alert and oriented -3. Appropriate affect. Intact judgment and insight. - Labs CBC & Chem 7: 12/19/18 03:14 12/19/18 03:14 Assessment and Plan Plan: Assessment #1. Acute exacerbation of chronic obstructive pulmonary disease #2. Altered mental status, CT brain showed no acute abnormality, age-related changes of atrophy and probable chronic small vessel ischemia. Alteration of mental status could be related to metabolic encephalopathy #3. Chronic and ongoing heavy tobacco use #4. Elevated troponin, patient was evaluated by cardiology, ruled out for acute myocardial injury #5. Possible interstitial fibrosis versus interstitial edema Plan: Patient is doing well and pulmonary perspective, no difficulty breathing, vital signs are stable, she will need home oxygen evaluation. She will need a nebulizer machine, she'll be sent home on DuoNeb nebulized treatments 3 times a day, prednisone taper, and outpatient course of antibiotics, patient will need follow-up appointment with Dr. Barr in the office. From pulmonary perspective she could be considered for discharge home I performed a history & physical examination of the patient and discussed their management with my nurse practitioner, Rosalee Boyle. I reviewed the nurse practitioner's note and agree with the documented findings and plan of care. Lung sounds are positive for diminished breath sounds The findings and the impression was discussed with the patient. I attest to the documentation by the nurse practitioner. Time with Patient: Less than 30
[2018-12-21] MEDS: LOSARTAN 50 MG TAB PO SCH (13:19)
[2018-12-21] MEDS: ATORVASTATIN 20 MG TAB PO SCH (20:24)
[2018-12-21] MEDS: AZITHROMYCIN 500 MG TAB PO SCH (22:28)
--- NOTE | 2018-12-22 00:37 | P.PN ---
Subjective Progress Note Date: 12/19/18 Principal diagnosis: Acute COPD exacerbation Acute metabolic encephalopathy Patient is a 71-year-old male with known history of smoking 1 pack per day was brought to the hospital by her family due to altered mental status. Apparently patient has been very confused and could not get out of her bed most of the time for the past one half week. Patient has been cough with congestion and shortness of breath. Patient has also been having diarrhea and feels very tired and forgetful recently. Patient also having back pain. Otherwise patient denied any complaints and is also a poor historian. Patient has been afebrile. Patient was found to be hypoxic with pulse ox 81% room air on admission. Having diffuse wheezing and also elevated d-dimer. Troponin 0.248 and 0.222 Chest x-ray showed COPD, emphysematous changes. CT angiogram of the chest is negative for pulmonary embolism. Extensive bilateral reticulonodular pulmonary subpleural infiltrates. Bilateral bronchial adenopathy. This could be related to chronic inflammatory disease. Emphysema. 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 WBC 10.4, hemoglobin 16 BNP 3750 12/19/2018 Patient denied any complaints of chest pain. Breathing status slightly improved. Due to altered mental status CT head was done showed no acute intracranial abnormality was noted. Patient is being continued on IV steroids and breathing treatments and antibiotics. Pulmonary and cardiology is following. 2-D echocardiogram was ordered. No fever no chills. Patient mental status is slightly improved but still confus ed. Discussed with family at bedside in detail. Current medications reviewed. Objective - Vital Signs Vital signs: Vital Signs Temp 98.2 F 12/19/18 16:00 Pulse 89 12/19/18 16:00 Resp 20 12/19/18 16:00 BP 130/60 12/19/18 16:00 Pulse Ox 91 L 12/19/18 16:00 Intake & Output 12/18/18 12/19/18 12/19/18 18:59 06:59 18:59 Intake Total 1160 Balance 1160 Weight 54.431 kg 38.5 kg 49.6 kg Intake: Intake, IV Titration 800 Amount Sodium Chloride 0.9% 1, 800 000 ml @ 100 mls/hr IV . Q10H [facility] Rx#:[id number] Oral 360 Other: # Voids 1 1 - Exam PHYSICAL EXAMINATION: Patient is lying in the bed comfortably, no acute distress, awake alert and oriented but confused... HEENT: Normocephalic. Neck is supple. Pupils reactive. Nostrils clear. Oral cavity is moist. Ears reveal no drainage. Neck reveals no JVD, carotid bruits, or thyromegaly. CHEST EXAMINATION: Trachea is central. Symmetrical expansion. Bilateral wheezing and diminished air entry. CARDIAC: Normal S1, S2 with no gallops. No murmurs ABDOMEN: Soft. Bowel sounds normal. No organomegaly. No abdominal bruits. Extremities: reveal no edema. No clubbing or cyanosis Neurologically awake, alert, oriented x2-3 with well-coordinated movements. No focal deficits noted Skin: No rash or skin lesions. Psychiatric: Coperative. Nonsuicidal Musculoskeletal: No joint swelling or deformity. Normal range of motion. - Labs CBC & Chem 7: 12/19/18 03:14 12/19/18 03:14 Labs: Abnormal Lab Results - Last 24 Hours (Table) 12/18/18 12/19/18 12/19/18 Range/Units 20:32 03:14 03:14 Hct (34.0-46.0) % MCHC (31.0-37.0) g/dL RDW (11.5-15.5) % Lymphocytes # (1.0-4.8) k/uL ABG pCO2 (35-45) mmHg ABG pO2 (83-108) mmHg ABG HCO3 (21-25) mmol/L ABG Total CO2 (19-24) mmol/L ABG O2 Saturation (94-97) % Carbon Dioxide 31 H (22-30) mmol/L BUN 20 H (7-17) mg/dL Creatinine 0.40 L (0.52-1.04) mg/dL Glucose 187 H (74-99) mg/dL AST 13 L (14-36) U/L Troponin I 0.222 H* 0.207 H* (0.000-0.034) ng/mL Total Protein 5.8 L (6.3-8.2) g/dL Albumin 2.7 L (3.5-5.0) g/dL HDL Cholesterol 28 L (40-60) mg/dL 12/19/18 12/19/18 Range/Units 03:14 13:05 Hct 50.1 H (34.0-46.0) % MCHC 29.3 L (31.0-37.0) g/dL RDW 15.7 H (11.5-15.5) % Lymphocytes # 0.3 L (1.0-4.8) k/uL ABG pCO2 57 H (35-45) mmHg ABG pO2 53 L* (83-108) mmHg ABG HCO3 35 H (21-25) mmol/L ABG Total CO2 37 H (19-24) mmol/L ABG O2 Saturation 85.5 L (94-97) % Carbon Dioxide (22-30) mmol/L BUN (7-17) mg/dL Creatinine (0.52-1.04) mg/dL Glucose (74-99) mg/dL AST (14-36) U/L Troponin I (0.000-0.034) ng/mL Total Protein (6.3-8.2) g/dL Albumin (3.5-5.0) g/dL HDL Cholesterol (40-60) mg/dL Assessment and Plan Assessment: Acute hypoxic respiratory failure secondary to COPD exacerbation. Acute purulent tracheobronchitis. Possible pneumonia Nicotine addiction Altered mental status possible metabolic encephalopathy Elevated troponin level. Possible demand mismatch. Elevated d-dimer. CTA is negative for any pulmonary embolism area DVT prophylaxis with heparin subcu Plan: Patient be continued on IV hydration. Continue with duo nebs and IV steroids a nd antibiotics in the form of azithromycin. Trend troponins. 2-D echocardiogram was ordered. Continue to follow closely. Pulmonary was consulted. Further admissions based on the clinical course. Discussed with the family at bedside in detail. Time with Patient: Greater than 30
--- NOTE | 2018-12-22 00:40 | P.PN ---
Subjective Progress Note Date: 12/20/18 Principal diagnosis: Acute COPD exacerbation Acute metabolic encephalopathy Patient is a 71-year-old male with known history of smoking 1 pack per day was brought to the hospital by her family due to altered mental status. Apparently patient has been very confused and could not get out of her bed most of the time for the past one half week. Patient has been cough with congestion and shortness of breath. Patient has also been having diarrhea and feels very tired and forgetful recently. Patient also having back pain. Otherwise patient denied any complaints and is also a poor historian. Patient has been afebrile. Patient was found to be hypoxic with pulse ox 81% room air on admission. Having diffuse wheezing and also elevated d-dimer. Troponin 0.248 and 0.222 Chest x-ray showed COPD, emphysematous changes. CT angiogram of the chest is negative for pulmonary embolism. Extensive bilateral reticulonodular pulmonary subpleural infiltrates. Bilateral bronchial adenopathy. This could be related to chronic inflammatory disease. Emphysema. 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 WBC 10.4, hemoglobin 16 BNP 3750 12/19/2018 Patient denied any complaints of chest pain. Breathing status slightly improved. Due to altered mental status CT head was done showed no acute intracranial abnormality was noted. Patient is being continued on IV steroids and breathing treatments and antibiotics. Pulmonary and cardiology is following. 2-D echocardiogram was ordered. No fever no chills. Patient mental status is slightly improved but still confus ed. Discussed with family at bedside in detail. 12/20/2018 Patient denied any complaints of chest pain or worsening shortness of breath. Saturating well on 4 L nausea cannula. Otherwise patient is being continued on IV steroids and breathing treatments and antibiotics. 2-D echocardiogram showed [id number] reduced systolic function with an EF between 40-45%, mild aortic valve sclerosis, mild MR, mild TR, no evidence of pulmonary hypertension. She is awake and alert, oriented 3, in no acute distress. Current medications reviewed. Objective - Vital Signs Vital signs: Vital Signs Temp 98.5 F 12/20/18 20:36 Pulse 82 12/20/18 21:16 Resp 20 12/20/18 20:36 BP 127/58 12/20/18 20:36 Pulse Ox 94 L 12/20/18 20:36 Intake & Output 12/20/18 12/20/18 12/21/18 06:59 18:59 06:59 Intake Total 360 702 Balance 360 702 Weight 49.9 kg Intake: Oral 360 702 Other: # Voids 2 2 - Exam PHYSICAL EXAMINATION: Patient is lying in the bed comfortably, no acute distress, awake alert and oriented but confused... HEENT: Normocephalic. Neck is supple. Pupils reactive. Nostrils clear. Oral cavity is moist. Ears reveal no drainage. Neck reveals no JVD, carotid bruits, or thyromegaly. CHEST EXAMINATION: Trachea is central. Symmetrical expansion. Bilateral cataract wheezing. Air entry improved.. CARDIAC: Normal S1, S2 with no gallops. No murmurs ABDOMEN: Soft. Bowel sounds normal. No organomegaly. No abdominal bruits. Extremities: reveal no edema. No clubbing or cyanosis Neurologically awake, alert, oriented x2-3 with well-coordinated movements. No focal deficits noted Skin: No rash or skin lesions. Psychiatric: Coperative. Nonsuicidal Musculoskeletal: No joint swelling or deformity. Normal range of motion. - Labs CBC & Chem 7: 12/19/18 03:14 12/19/18 03:14 Assessment and Plan Assessment: Acute hypoxic respiratory failure secondary to COPD exacerbation. Acute purulent tracheobronchitis. Possible pneumonia Nicotine addiction Altered mental status possible metabolic encephalopathy Elevated troponin level. Possible demand mismatch. Ruled out ACS. Elevated d-dimer. CTA is negative for any pulmonary embolism area DVT prophylaxis with heparin subcu Plan: Patient be continued on IV hydration. Continue with duo nebs and IV steroids and antibiotics in the form of azithromycin. Trend troponins. 2-D echocardiogram was ordered. Continue to follow closely. Pulmonary was consulted. Further admissions based on the clinical course. Discussed with the family at bedside in detail. Time with Patient: Greater than 30
--- NOTE | 2018-12-22 00:44 | P.PN ---
Subjective Progress Note Date: 12/21/18 Principal diagnosis: Acute COPD exacerbation Acute metabolic encephalopathy Patient is a 71-year-old male with known history of smoking 1 pack per day was brought to the hospital by her family due to altered mental status. Apparently patient has been very confused and could not get out of her bed most of the time for the past one half week. Patient has been cough with congestion and shortness of breath. Patient has also been having diarrhea and feels very tired and forgetful recently. Patient also having back pain. Otherwise patient denied any complaints and is also a poor historian. Patient has been afebrile. Patient was found to be hypoxic with pulse ox 81% room air on admission. Having diffuse wheezing and also elevated d-dimer. Troponin 0.248 and 0.222 Chest x-ray showed COPD, emphysematous changes. CT angiogram of the chest is negative for pulmonary embolism. Extensive bilateral reticulonodular pulmonary subpleural infiltrates. Bilateral bronchial adenopathy. This could be related to chronic inflammatory disease. Emphysema. 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 WBC 10.4, hemoglobin 16 BNP 3750 12/19/2018 Patient denied any complaints of chest pain. Breathing status slightly improved. Due to altered mental status CT head was done showed no acute intracranial abnormality was noted. Patient is being continued on IV steroids and breathing treatments and antibiotics. Pulmonary and cardiology is following. 2-D echocardiogram was ordered. No fever no chills. Patient mental status is slightly improved but still confus ed. Discussed with family at bedside in detail. 12/20/2018 Patient denied any complaints of chest pain or worsening shortness of breath. Saturating well on 4 L nausea cannula. Otherwise patient is being continued on IV steroids and breathing treatments and antibiotics. 2-D echocardiogram showed [id number] reduced systolic function with an EF between 40-45%, mild aortic valve sclerosis, mild MR, mild TR, no evidence of pulmonary hypertension. She is awake and alert, oriented 3, in no acute distress. 12/20/2018 Patient's breathing status is fairly improved. Still having expiratory wheeze. Requiring oxygen with another cannula and saturating at 92% on 2 L. Patient is being continued on IV steroids and breathing treatments and antibiotics. Continued on metoprolol and statins and losartan was added due to reduced ejection fraction. Mental status is much improved as per family. Anticipate discharge in next 1-2 days. No fever no chills. Tolerating oral diet. No nausea vomiting or abdominal pain no diarrhea. Current medications reviewed. Objective - Vital Signs Vital signs: Vital Signs Temp 96.5 F L 12/21/18 19:55 Pulse 84 12/21/18 21:01 Resp 18 12/21/18 20:00 BP 132/87 12/21/18 19:55 Pulse Ox 93 L 12/21/18 19:55 Intake & Output 12/21/18 12/21/18 12/22/18 06:59 18:59 06:59 Intake Total 1320 10 Balance 1320 10 Weight 48.9 kg Intake: IV 10 Invasive Line 1 10 Oral 1320 Other: # Voids 1 3 - Exam PHYSICAL EXAMINATION: Patient is lying in the bed comfortably, no acute distress, awake alert and oriented but confused... HEENT: Normocephalic. Neck is supple. Pupils reactive. Nostrils clear. Oral cavity is moist. Ears reveal no drainage. Neck reveals no JVD, carotid bruits, or thyromegaly. CHEST EXAMINATION: Trachea is central. Symmetrical expansion. Bilateral cataract wheezing. Air entry improved.. CARDIAC: Normal S1, S2 with no gallops. No murmurs ABDOMEN: Soft. Bowel sounds normal. No organomegaly. No abdominal bruits. Extremities: reveal no edema. No clubbing or cyanosis Neurologically awake, alert, oriented x2-3 with well-coordinated movements. No focal deficits noted Skin: No rash or skin lesions. Psychiatric: Coperative. Nonsuicidal Musculoskeletal: No joint swelling or deformity. Normal range of motion. - Labs CBC & Chem 7: 12/19/18 03:14 12/19/18 03:14 Assessment and Plan Assessment: Acute hypoxic respiratory failure secondary to COPD exacerbation. Acute purulent tracheobronchitis. Possible pneumonia Nicotine addiction Altered mental status possible metabolic encephalopathy Elevated troponin level. Possible demand mismatch. Ruled out ACS. Possible chronic CHF with systolic dysfunction. Ejection fraction 40-40% Elevated d-dimer. CTA is negative for any pulmonary embolism area DVT prophylaxis with heparin subcu Plan: IV fluids discontinued. Continue with duo nebs and IV steroids and antibiotics in the form of azithromycin. Trending down troponins. 2-D echocardiogram report as above.. Continue to follow closely. Pulmonary and cardiology is following.. Further admissions based on the clinical course. Discussed with the family at bedside in detail. Time with Patient: Greater than 30
[2018-12-22] MEDS: methylPREDNISolone SOD SUCCI 125 MG/2 ML VIAL IV SCH ×2 (06:07→12:33)
[2018-12-22] MEDS: BUDESONIDE 1 MG/2 ML NEBU INHALATION SCH (07:38)
[2018-12-22] MEDS: IPRATROPIUM-ALBUTEROL 3 ML NEB INHALATION SCH ×3 (07:38→15:45)
[2018-12-22] MEDS: FORMOTEROL FUMARATE 20 MCG/2 ML NEBU INHALATION SCH (07:38)
[2018-12-22] MEDS: HEPARIN SODIUM,PORCINE 5,000 UNIT/ML 1 ML VIAL SQ SCH (07:52)
[2018-12-22] MEDS: LOSARTAN 50 MG TAB PO SCH (07:52)
[2018-12-22] MEDS: NICOTINE 21MG/24HR PATCH TRANSDERM SCH (07:52)
[2018-12-22] MEDS: METOPROLOL TARTRATE 50 MG TAB PO SCH (07:52)
[2018-12-22] MEDS: INSULIN ASPART (NovoLOG) 100 UNIT/ML VIAL SQ SCH ×2 (07:53→12:33)
[2018-12-22 07:59] LABS: Glucose,Whole Blood 251 mg/dL (75-99)
[2018-12-22 11:25] LABS: Basophils % (A) 0 %; Eosinophils % (A) 0 %; HGB 14.2 gm/dL (11.4-16.0); Hypochromasia Marked; Lymphocytes # (A) 0.2 k/uL (1.0-4.8); Lymphocytes % (A) 3 %; MCH 28.2 pg (25.0-35.0); MCHC 29.5 g/dL (31.0-37.0); MCV 95.7 fL (80.0-100.0); Mean Platelet Volume 6.5; Monocytes # (A) 0.3 k/uL (0-1.0); Monocytes % (A) 4 %; Neutrophils # (A) 6.6 k/uL (1.3-7.7); Neutrophils % (A) 92 %; Platelet Count 437 k/uL (150-450); RBC 5.01 m/uL (3.80-5.40); RDW 15.4 % (11.5-15.5); WBC 7.2 k/uL (3.8-10.6)
[2018-12-22 11:41] LABS: ALT 21 U/L (9-52); AST 11 U/L (14-36); Albumin 2.7 g/dL (3.5-5.0); Alkaline Phosphatase 69 U/L (38-126); Anion Gap 2 mmol/L; Blood Urea Nitrogen 22 mg/dL (7-17); Calcium 9.3 mg/dL (8.4-10.2); Carbon Dioxide 38 mmol/L (22-30); Chloride 99 mmol/L (98-107); Glucose 236 mg/dL (74-99); Potassium 4.9 mmol/L (3.5-5.1); Sodium 139 mmol/L (137-145); Total Bilirubin 0.4 mg/dL (0.2-1.3); Total Protein 5.4 g/dL (6.3-8.2)
[2018-12-22 11:43] LABS: Glucose,Whole Blood 219 mg/dL (75-99)
--- NOTE | 2018-12-22 14:43 | P.CN ---
Psychiatric Consult - . Consult date: 12/22/18 Consult:: 12/22/18 10:13 Altered mental status Assessment and Plan Assessment: This is 73-year-old white female patient who does not regularly see a doctor, patient has no history of major medical problems. Patient came in to the hospital on 12/18/2018 for alteration in mental status, and shortness of breath. She was quite confused and disoriented. Not normally on any oxygen at home, she takes no breathing treatments or inhalers. Past Medical History Past Medical History: No Reported History History of Any Multi-Drug Resistant Organisms: None Reported Past Surgical History: Hysterectomy Past Psychological History: No Psychological Hx Reported Smoking Status: Current every day smoker Past Alcohol Use History: Rare Past Drug Use History: None Reported - Past Family History Daughter(s) Additional Family Medical History / Comment(s): gallbladder removed Medications and Allergies Home Medications Medication Instructions Recorded Confirmed Type No Known Home Medications 12/18/18 12/18/18 History Allergies Allergy/AdvReac Type Severity Reaction Status Date / Time No Known Allergies Allergy Verified 12/18/18 14:37 Mental status examination: The patient presents alert, pleasant, and cooperative. There calmly lying in bed without any agitated behavior. [She] reports that [her] mood is good. Affect is congruent and euthymic. [She] deny having any suicidal or homicidal ideation intent or plan. [She] denies any auditory or visual hallucinations. T here is no evidence of any delusional thought content. [Her] thought process is somewhat linear and goal-directed. [Her] speech is fluent and nonpressured. [Her] memory and concentration is mostly intact for the purposes of this session. For the consult Psychiatric impression: Neurocognitive disorder mild Psychiatric recommendations: This is not an inpatient patient for [address] [place] [address]. This appears to be medical in origin. Dave Drake D.O. PhD (1) Neurocognitive disorder Current Visit: Yes Status: Acute Code(s): R41.9 - UNSP SYMPTOMS AND SIGNS W COGNITIVE FUNCTIONS AND AWARENESS SNOMED Code(s): 056482356 (2) Hypoxia Current Visit: Yes Status: Acute Code(s): R09.02 - HYPOXEMIA SNOMED Code(s): 255668038
[2018-12-22] MEDS ORDERED: predniSONE 50 MG TAB PO STA (15:08)
[2018-12-22 15:27] VITALS: BP 159/74; PULSE 99; RESP 18; TEMP 97.3
== END 2018-12-22 15:52 | disposition home health service (06) | DRG 190 ==
LOC: EC 13:53 → 3SCARD 15:57 → 4MS4W 12-21 23:15
PROVIDERS: ADMIT Hospitalist; ATTEND Hospitalist
DX: J43.9 Emphysema, unspecified (principal); J96.01 Acute respiratory failure with hypoxia; I71.01 Dissection of thoracic aorta; G93.41 Metabolic encephalopathy; J45.901 Unspecified asthma with (acute) exacerbation; J96.12 Chronic respiratory failure with hypercapnia; E87.2 Acidosis; I50.22 Chronic systolic (congestive) heart failure; I08.3 Combined rheumatic disorders of mitral, aortic and tricuspid valves; J20.9 Acute bronchitis, unspecified; I25.2 Old myocardial infarction; M54.9 Dorsalgia, unspecified; R59.9 Enlarged lymph nodes, unspecified; R41.9 Unspecified symptoms and signs involving cognitive functions and awareness; R77.8 Other specified abnormalities of plasma proteins; F17.210 Nicotine dependence, cigarettes, uncomplicated; Z71.6 Tobacco abuse counseling; Z91.19 Patient's noncompliance with other medical treatment and regimen; Z90.710 Acquired absence of both cervix and uterus; Z83.79 Family history of other diseases of the digestive system
CPT/HCPCS: 36415; 36600; 70450; 71046; 71275; 80053; 80061; 82140; 82805; 83735; 83880; 84484; 85025; 85379; 85610; 85730; 93005; 93306; 94640; 94760; 96361; 96374; 99291

== ENCOUNTER 2022-05-19 19:55 | Inpatient (IN) | payer MEDICARE ==
[2022-05-19] MEDS ORDERED: SODIUM CHLORIDE 0.9% 500 ML 500 ML IV STA (20:21)
--- NOTE | 2022-05-19 20:29 | ED ---
Syncope HPI - General Chief Complaint: Syncope Stated Complaint: Syncope, Left Leg injury Time Seen by Provider: 05/19/22 20:11 Source: patient, family, RN notes reviewed Mode of arrival: wheelchair Limitations: no limitations - History of Present Illness Initial Comments: This is a pleasant 77-year-old female with a history of hypertension and COPD. Patient presents to the emergency department today after having a short syncopal episode in her kitchen. Patient was cooking and states that she felt lightheaded. It does not sound like there was any vertiginous type symptoms. Patient then fell. She does not believe she lost consciousness totally. This was witnessed by her boyfriend. Unsure if there was brief loss of consciousness however she was able to regain postural tone on her own. Patient had no preceding chest pain, no preceding abdominal pain, there were no focal neurologic complaints. Patient did have some lightheadedness with some tunnel vision prior to the event. Patient actually back to baseline at this time. She is not on blood thinners. Patient states that she was eating and drinking normally throughout the day. No history of diabetes. She has had some recent problems with low back pain and abdominal pain. This been going on for a few months. Apparently the patient is in the process of being worked up. POSITIVE lightheadedness with short syncopal episode --No headache, no fever or chills, no changes in vision or hearing, no sore throat or difficulty with speech, no neck pain, no chest pain or shortness of breath, no abdominal pain, no nausea or vomiting, no changes in urination or bowel movements, no numbness or tingling, no extremity pain, no skin rashes or lesions. Past medical, surgical, social, and family history reviewed. Patient complaining of some pain to the hamstring area on the left. No knee pain or hip pain. Pain is exacerbated by movement. Patient states after she initially fell it felt like she was having a cramp in this area. - Related Data Home Medications Medication Instructions Recorded Confirmed Albuterol Sulfate [Albuterol 2 puff PO RT-Q4H PRN 05/19/22 05/19/22 Sulfate Hfa] Aspirin 162 mg PO DAILY 05/19/22 05/19/22 Budesonide-Formot 160-4.5 Mcg 2 puff INHALATION RT-BID 05/19/22 05/19/22 [Symbicort 160-4.5 Mcg Inhaler] hydroCHLOROthiazide 25 mg PO DAILY 05/19/22 05/19/22 Previous Rx's Medication Instructions Recorded Atorvastatin [Lipitor] 20 mg PO HS #30 tab 12/22/18 Ipratropium-Albuterol Nebulize 3 ml INHALATION RT-QID 30 Days 12/22/18 [Duoneb 0.5 mg-3 mg/3 ml Soln] ampul.neb Losartan [Cozaar] 50 mg PO DAILY #30 tab 12/22/18 Metoprolol Tartrate [Lopressor] 50 mg PO BID #60 tab 12/22/18 Allergies Allergy/AdvReac Type Severity Reaction Status Date / Time No Known Allergies Allergy Verified 05/19/22 22:02 Review of Systems ROS Statement: Those systems with pertinent positive or pertinent negative responses have been documented in the HPI. ROS Other: All systems not noted in ROS Statement are negative. Past Medical History Past Medical History: COPD, Hypertension History of Any Multi-Drug Resistant Organisms: None Reported Past Surgical History: Hysterectomy Past Anesthesia/Blood Transfusion Reactions: No Reported Reaction Past Psychological History: No Psychological Hx Reported Smoking Status: Former smoker Past Alcohol Use History: Rare Past Drug Use History: None Reported - Past Family History Daughter(s) Additional Family Medical History / Comment(s): gallbladder removed General Exam - General Exam Comments Initial Comments: Assessment stable, patient afebrile. Cranial nerves II through XII are intact. Patient does not appear to be ill or toxic. Is in no acute distress currently. Limitations: no limitations General appearance: alert, in no apparent distress Head exam: Present: atraumatic, normocephalic, normal inspection Eye exam: Present: normal appearance, PERRL, EOMI. Absent: scleral icterus, conjunctival injection, nystagmus, periorbital swelling, periorbital tenderness Pupils: Present: normal accommodation ENT exam: Present: normal exam, mucous membranes moist. Absent: normal oropharynx, mucous membranes dry, TM's normal bilaterally, normal external ear exam Neck exam: Present: normal inspection, full ROM. Absent: tenderness, meningismus, lymphadenopathy Respiratory exam: Present: normal lung sounds bilaterally. Absent: respiratory distress, wheezes, rales, rhonchi, stridor, chest wall tenderness, accessory muscle use, decreased breath sounds, prolonged expiratory Cardiovascular Exam: Present: regular rate, normal rhythm, normal heart sounds. Absent: systolic murmur, diastolic murmur, rubs, gallop, clicks GI/Abdominal exam: Present: soft, normal bowel sounds. Absent: distended, t enderness, guarding, rebound, rigid Extremities exam: Present: normal inspection, full ROM, tenderness (Patient tenderness to the biceps for Shree on the left. No bony point tenderness. Flexion of the left knee versus resistance is diminished secondary to pain. No break in skin integrity. Distal pulses intact), normal capillary refill, other (Remainder of the musculoskeletal examination is benign. Pelvis is stable. No bony point tenderness. No effusion. Full range of motion all major joints. Full muscle strength all major muscle groups). Absent: pedal edema, joint swelling, calf tenderness Back exam: Present: normal inspection, full ROM, other (Patient does have what appears to be chronic kyphosis of the thoracic spine). Absent: tenderness, muscle spasm, paraspinal tenderness, vertebral tenderness Neurological exam: Present: alert, oriented X3, CN II-XII intact. Absent: motor sensory deficit Psychiatric exam: Present: normal affect, normal mood. Absent: anxious, flat affect, manic, homicidal ideation Skin exam: Present: warm, dry, intact, normal color. Absent: rash Course Vital Signs 05/19/22 05/19/22 05/19/22 19:57 20:28 20:29 Temperature 97.5 F L Pulse Rate 88 Pulse Rate [ 82 93 Sock Turner ] Respiratory 20 Rate Blood Pressure 137/65 Blood Pressure 135/57 [Left Arm Sitting] Blood Pressure [Left Arm Standing] Blood Pressure 146/65 [Left Arm Supine] O2 Sat by Pulse 98 Oximetry 05/19/22 05/19/22 05/19/22 20:33 21:37 21:42 Temperature 98.1 F Pulse Rate 96 Pulse Rate [ 103 H Sock Turner ] Respiratory 20 Rate Blood Pressure 139/69 Blood Pressure [Left Arm Sitting] Blood Pressure 127/56 [Left Arm Standing] Blood Pressure [Left Arm Supine] O2 Sat by Pulse 96 Oximetry - Reevaluation(s) Reevaluation #1: 05/19/22 21:20 Patient's d-dimer is extremely elevated. Patient's GFR is 41. Noted to patient's renal function has diminished since 2019. Admit the patient for syncope. Patient will be given a dose of Lovenox, we'll obtain a VQ scan. Reevaluation #2: 05/19/22 22:02 Patient reevaluated and is in no acute distress. Reevaluation #3: 05/19/22 22:03 Discussed all findings with the patient. Patient is no acute distress. Patient extremely elevated d-dimer. Patient appears to have gradually worsening renal function. Lovenox ordered, will obtain a VQ scan in the morning. - Consultations Consultation #1: Call placed for the admitting physician. EKG Findings - EKG Comments: EKG Findings:: EKG done at 2046 and reviewed by the ED attending physician reveals sinus rhythm with a rate of 84. Normal intervals. Normal axis. Baseline artifact noted. Nonspecific lateral ST and T-wave changes. When compared to the previous EKG, patient previously had poor R-wave progression. Patient did have nonspecific T changes in the lateral precordial leads. No evidence of significant change. Previous EKG from 2019. Patient has normal QRS morphology. Medical Decision Making - Medical Decision Making Sounds as if the patient had a brief syncopal episode. Regaining postural tone on her own. The patient had no preceding cephalalgia other than lighthead edness. Patient is neurologically intact. She has no shortness of breath or chest pain. Unlikely to be cardiogenic. Pulmonary embolism within the differential but less likely. Patient will be worked up, plan for reevaluation. We'll assess for dehydration or other etiology such as electrolyte imbalance or infectious process. Patient will be admitted to [facility] hospitalist group. We'll consult the patient's primary care doctor, Dr. Barr We'll administer one dose of Lovenox, 1 mg/kg for tonight and then obtain a VQ scan in the morning to assess for pulmonary embolism. The case was discussed in detail with ED attending physician. Presentation, f indings, treatment plan discussed in detail. Supervising physician Dr. Pearson - Lab Data Result diagrams: 05/19/22 20:34 05/19/22 20:34 Lab Results 05/19/22 05/19/22 05/19/22 Range/Units 20:34 20:34 20:34 WBC 10.0 (3.8-10.6) k/uL RBC 3.51 L (3.80-5.40) m/uL Hgb 10.2 L (11.4-16.0) gm/dL Hct 32.1 L (34.0-46.0) % MCV 91.4 (80.0-100.0) fL MCH 29.0 (25.0-35.0) pg MCHC 31.7 (31.0-37.0) g/dL RDW 13.8 (11.5-15.5) % Plt Count 365 (150-450) k/uL MPV 7.4 Neutrophils % 78 % Lymphocytes % 11 % Monocytes % 7 % Eosinophils % 1 % Basophils % 1 % Neutrophils # 7.8 H (1.3-7.7) k/uL Lymphocytes # 1.1 (1.0-4.8) k/uL Monocytes # 0.7 (0-1.0) k/uL Eosinophils # 0.1 (0-0.7) k/uL Basophils # 0.1 (0-0.2) k/uL D-Dimer 29.44 H (<0.60) mg/L FEU Sodium 132 L (137-145) mmol/L Potassium 4.2 (3.5-5.1) mmol/L Chloride 94 L (98-107) mmol/L Carbon Dioxide 24 (22-30) mmol/L Anion Gap 14 mmol/L BUN 21 H (7-17) mg/dL Creatinine 1.27 H (0.52-1.04) mg/dL Est GFR (CKD-EPI)AfAm 48 (>60 ml/min/1.73 sqM) Est GFR (CKD-EPI)NonAf 41 (>60 ml/min/1.73 sqM) Glucose 173 H (74-99) mg/dL Calcium 9.9 (8.4-10.2) mg/dL Magnesium 1.8 (1.6-2.3) mg/dL Total Bilirubin 0.4 (0.2-1.3) mg/dL AST 24 (14-36) U/L ALT 13 (4-34) U/L Alkaline Phosphatase 90 (38-126) U/L Troponin I (0.000-0.034) ng/mL NT-Pro-B Natriuret Pep pg/mL Total Protein 7.0 (6.3-8.2) g/dL Albumin 4.4 (3.5-5.0) g/dL 05/19/22 05/19/22 Range/Units 20:34 20:34 WBC (3.8-10.6) k/uL RBC (3.80-5.40) m/uL Hgb (11.4-16.0) gm/dL Hct (34.0-46.0) % MCV (80.0-100.0) fL MCH (25.0-35.0) pg MCHC (31.0-37.0) g/dL RDW (11.5-15.5) % Plt Count (150-450) k/uL MPV Neutrophils % % Lymphocytes % % Monocytes % % Eosinophils % % Basophils % % Neutrophils # (1.3-7.7) k/uL Lymphocytes # (1.0-4.8) k/uL Monocytes # (0-1.0) k/uL Eosinophils # (0-0.7) k/uL Basophils # (0-0.2) k/uL D-Dimer (<0.60) mg/L FEU Sodium (137-145) mmol/L Potassium (3.5-5.1) mmol/L Chloride (98-107) mmol/L Carbon Dioxide (22-30) mmol/L Anion Gap mmol/L BUN (7-17) mg/dL Creatinine (0.52-1.04) mg/dL Est GFR (CKD-EPI)AfAm (>60 ml/min/1.73 sqM) Est GFR (CKD-EPI)NonAf (>60 ml/min/1.73 sqM) Glucose (74-99) mg/dL Calcium (8.4-10.2) mg/dL Magnesium (1.6-2.3) mg/dL Total Bilirubin (0.2-1.3) mg/dL AST (14-36) U/L ALT (4-34) U/L Alkaline Phosphatase (38-126) U/L Troponin I <0.012 (0.000-0.034) ng/mL NT-Pro-B Natriuret Pep 273 pg/mL Total Protein (6.3-8.2) g/dL Albumin (3.5-5.0) g/dL Disposition Clinical Impression: Syncope and collapse, D-dimer, elevated, Chronic abdominal pain, Left hamstring muscle strain Narrative: Patient has what appears to be gradually worsening renal function Disposition: ADMITTED IP TO THIS HOSP Condition: Good Is patient prescribed a controlled substance at d/c from ED?: No Time of Disposition: 22:05 Decision to Admit Reason: Admit from EC Decision Time: 21:20
[2022-05-19 20:50] LABS: Basophils # (A) 0.1 k/uL (0-0.2); Basophils % (A) 1 %; Eosinophils # (A) 0.1 k/uL (0-0.7); Eosinophils % (A) 1 %; HCT 32.1 % (34.0-46.0); HGB 10.2 gm/dL (11.4-16.0); Lymphocytes # (A) 1.1 k/uL (1.0-4.8); Lymphocytes % (A) 11 %; MCHC 31.7 g/dL (31.0-37.0); MCV 91.4 fL (80.0-100.0); Mean Platelet Volume 7.4; Monocytes # (A) 0.7 k/uL (0-1.0); Monocytes % (A) 7 %; Neutrophils # (A) 7.8 k/uL (1.3-7.7); Neutrophils % (A) 78 %; Platelet Count 365 k/uL (150-450); RBC 3.51 m/uL (3.80-5.40); RDW 13.8 % (11.5-15.5)
[2022-05-19 20:56] LABS: Albumin 4.4 g/dL (3.5-5.0); Calcium 9.9 mg/dL (8.4-10.2); Magnesium 1.8 mg/dL (1.6-2.3); Potassium 4.2 mmol/L (3.5-5.1); Total Bilirubin 0.4 mg/dL (0.2-1.3)
--- NOTE | 2022-05-19 21:21 | CT ---
EXAMINATION TYPE: CT brain елена angel DATE OF EXAM: 05/19/2022 COMPARISON: CT brain 12/19/2018 HISTORY: pain after fall CT DLP: 1281.8 mGycm Automated exposure control for dose reduction was used. Images of the brain and cervical spine obtained with no contrast. There is mild cerebral atrophy. There is no mass effect or midline shift. No sign of intracranial hem orrhage. The calvarium is intact. Skull base is intact. The cervical vertebra have fairly normal spacing and alignment for the patient's age. Posterior eleme nts are intact. There is minimal hypertrophic facet arthropathy. There is minor spurring in the mid c ervical spine. No fracture seen. IMPRESSION: Negative CT scan of the brain and cervical spine. No evidence of traumatic injury.
--- NOTE | 2022-05-19 21:30 | XR ---
EXAMINATION TYPE: XR chest 1V portable DATE OF EXAM: 05/19/2022 COMPARISON: 12/18/2018 HISTORY: Syncope TECHNIQUE: FINDINGS: Heart is normal. Lungs are clear of infiltrate. No heart failure. There are no hilar masses . The bony thorax is intact. There are chest leads. IMPRESSION: No active cardiopulmonary disease. Normal heart. No change.
[2022-05-19] MEDS ORDERED: ENOXAPARIN 60 MG/0.6 ML SYRINGE SQ STA (22:05)
[2022-05-19] MEDS ORDERED: MORPHINE SULFATE 4 MG/ML SYRINGE IV PRN (22:25)
[2022-05-19] MEDS ORDERED: NALOXONE 0.4 MG/ML 1 ML VIAL IV PRN (22:25)
[2022-05-19] MEDS ORDERED: ONDANSETRON 4 MG/2 ML VIAL IVP PRN (22:25)
[2022-05-19] MEDS: ACETAMINOPHEN TAB 325 MG TAB PO PRN (22:37)
[2022-05-19] MEDS: SODIUM CHLORIDE 0.9% 1,000 ML IV SCH (22:37)
[2022-05-20 02:00] LABS: Appearance,Urine Clear (Clear); Bacteria,Urine Rare /hpf; Bilirubin,Urine Negative (Negative); Blood,Urine Negative (Negative); Color,Urine Light Yellow; Glucose,Urine (UA) Negative (Negative); Ketones,Urine Negative (Negative); Leukocyte Esterase,Urine Moderate (Negative); Nitrite,Urine Negative (Negative); PH, Urine 5.5 (5.0-8.0); Protein,Urine Negative (Negative); RBC,Urine 1 /hpf (0-5); Specific Gravity,Urine 1.009 (1.001-1.035); Squamous Epithelial Cell,Urine 1 /hpf (0-4); Transitional Epi Cells,Urine <1 /hpf (0-1); Urobilinogen,Urine <2.0 mg/dL (<2.0); WBC,Urine 7 /hpf (0-5)
[2022-05-20 07:09] LABS: Basophils # (A) 0.1 k/uL (0-0.2); Basophils % (A) 1 %; Eosinophils # (A) 0.2 k/uL (0-0.7); Eosinophils % (A) 3 %; HCT 31.3 % (34.0-46.0); Hypochromasia Slight; Lymphocytes # (A) 1.8 k/uL (1.0-4.8); Lymphocytes % (A) 27 %; MCH 29.9 pg (25.0-35.0); MCHC 31.9 g/dL (31.0-37.0); MCV 93.7 fL (80.0-100.0); Mean Platelet Volume 7.2; Monocytes # (A) 0.5 k/uL (0-1.0); Monocytes % (A) 7 %; Neutrophils # (A) 4.1 k/uL (1.3-7.7); Neutrophils % (A) 60 %; Platelet Count 325 k/uL (150-450); RBC 3.34 m/uL (3.80-5.40); WBC 6.8 k/uL (3.8-10.6)
[2022-05-20 07:37] LABS: ALT 12 U/L (4-34); AST 23 U/L (14-36); African American GFR (CKD) 55 (>60 ml/min/1.73 sqM); Albumin 3.9 g/dL (3.5-5.0); Alkaline Phosphatase 78 U/L (38-126); Anion Gap 11 mmol/L; Blood Urea Nitrogen 20 mg/dL (7-17); Calcium 9.2 mg/dL (8.4-10.2); Carbon Dioxide 23 mmol/L (22-30); Chloride 101 mmol/L (98-107); Glucose 128 mg/dL (74-99); Magnesium 1.7 mg/dL (1.6-2.3); Non-African American GFR(CKD) 48 (>60 ml/min/1.73 sqM); Potassium 4.5 mmol/L (3.5-5.1); Sodium 135 mmol/L (137-145); Total Bilirubin 0.4 mg/dL (0.2-1.3); Total Protein 6.5 g/dL (6.3-8.2)
[2022-05-20] MEDS ORDERED: ENOXAPARIN 60 MG/0.6 ML SYRINGE SQ SCH (09:00)
[2022-05-20] MEDS ORDERED: LOSARTAN 50 MG TAB PO SCH (09:00)
--- NOTE | 2022-05-20 09:15 | US ---
EXAMINATION TYPE: US venous doppler duplex LE DATE OF EXAM: 05/20/2022 8:24 AM COMPARISON: NONE CLINICAL HISTORY: leg swelling. Exam done portable SIDE PERFORMED: Bilateral TECHNIQUE: The lower extremity deep venous system is examined utilizing real time linear array sonog partha with graded compression, doppler sonography and color-flow sonography. VESSELS IMAGED: Common Femoral Vein Deep Femoral Vein Greater Saphenous Vein * Femoral Vein Popliteal Vein Small Saphenous Vein * Proximal Calf Veins (* superficial vessels) Right Leg: Appears negative for DVT Left Leg: Appears negative for DVT Grayscale, color doppler, spectral doppler imaging performed of the deep veins of the lower extremiti es. There is normal flow, compressibility, vascular waveforms. IMPRESSION: No evidence for deep vein thrombosis of the bilateral lower extension extremities.
--- NOTE | 2022-05-20 09:20 | NM ---
EXAMINATION TYPE: NM pul vent and perfuse DATE OF EXAM: 05/20/2022 COMPARISON: CT chest 12/18/2018. Chest radiograph 05/19/2022 CLINICAL INDICATION:Female, 77 years old with history of Syncope; TECHNIQUE: Utilizing inhalation of 68.6 mCi Tc 99m DTPA aerosol and intravenous injection of 4.75 mC i of Tc 99m MAA, ventilation and perfusion images are acquired post injection in multiple projections . FINDINGS: Scattered ventilation clumping of the radiotracer which could represent patient's known COPD changes. Delayed images demonstrate no perfusion abnormalities of fixed or reversible nature. No segmental def ects are noted. IMPRESSION: 1. Patchy uptake of ventilation radiotracer Tc 99m DTPA aerosol which may represent improper tagging or COPD changes which are demonstrated on prior CT chest and radiograph. 2. No evidence for perfusion abnormality to suggest pulmonary embolism.
[2022-05-20] MEDS: hydroCHLOROthiazide 25 MG TAB PO SCH (09:49)
[2022-05-20] MEDS: ASPIRIN 81 MG PO SCH (09:49)
[2022-05-20] MEDS: METOPROLOL TARTRATE 50 MG TAB PO SCH ×2 (09:49→21:28)
[2022-05-20] MEDS: FAMOTIDINE 20 MG/2 ML VIAL IV SCH (09:50)
[2022-05-20] MEDS: SYMBICORT 160-4.5 MCG INHALER INHALATION SCH ×2 (11:23→19:44)
[2022-05-20] MEDS: IPRATROPIUM-ALBUTEROL 3 ML NEB INHALATION PRN ×2 (11:23→15:22)
[2022-05-20] MEDS: SODIUM CHLORIDE 0.9% 1,000 ML IV SCH (12:00)
--- NOTE | 2022-05-20 12:29 | P.CRDCN ---
History of Present Illness History of present illness: HISTORY OF PRESENT ILLNESS: This is a 77-year-old female with a past medical history significant for hyperlipidemia, hypertension, and possible TIA per patient. Patient does not follow with a maintenance aide. We have been asked to see the patient in consultation for syncope. Patient examined at the bedside. Patient states she was diagnosed with a UTI a few weeks ago. She reports being on two different antibiotics. She states yesterday she was in the kitchen cooking. She states that she be in to feel dizzy. She states that she told her she was feeling dizzy and she then fell to the floor. She her is at the bedside and states that as soon as he walked over to the patient she was all ready trying to get herself up off the floor. The patient did not lose consciousness. She denies any chest pain or pressure. She denies any shortness of breath. She denies any previous history of syncope. * EKG reveals sinus mechanism with ST depression in V5V6, similar to previous EKG. EKG with baseline artifact. * Chest xray negative for acute process * Lower extremity Doppler: Negative for DVT bilaterally * VQ scan: Negative for PE * Laboratory data: WBC 6.8. Hemoglobin 10.0. Platelet count 325. D-dimer 29.44. Sodium 135. Potassium 4.5. BUN 20. Creatinine 1.12. Troponin negative 1. ProBNP 273. TSH 1.410. * Current home cardiac medications include aspirin 162 mg daily, metoprolol titrate 50 mg twice a day, losartan 50 mg daily, hydrochlorothiazide 25 mg daily, atorvastatin 20 mg at night * Most recent echocardiogram obtained in December 2018 revealed ejection fraction 40-45% with basal inferior, basal inferior septal, mid inferior, apical inferior hypokinesis, mild MR, mild TR * Cardiac catheterization history: Patient denies REVIEW OF SYSTEMS: At the time of my exam: CONSTITUTIONAL: Denies fever or chills. HEENT: Denies blurred vision, vision changes, or eye pain. Denies hemoptysis CARDIOVASCULAR: Denies chest pain. Denies orthopnea. Denies PND. Denies palpitations RESPIRATORY: Denies shortness of breath. GASTROINTESTINAL: Denies abdominal pain. Denies nausea or vomiting. HEMATOLOGIC: Denies bleeding disorders. GENITOURINARY: Denies any blood in urine. SKIN: Denies pruitis. Denies rash. PHYSICAL EXAM: VITAL SIGNS: Reviewed. GENERAL: Well-developed in no acute distress. HEENT: Head is normocephalic. Pupils are equal, round. Sclerae anicteric. Mucous membranes of the mouth are moist. Neck supple. No JVD or thyromegaly LUNGS: Respirations even and unlabored. Lungs essentially clear to auscultation bilaterally. HEART: Regular rate and rhythm. S1 and S2 heard. ABDOMEN: Soft. Nondistended. Nontender. EXTREMITIES: Normal range of motion. No clubbing or cyanosis. Peripheral pulses intact. No lower extremity edema NEUROLOGIC: Awake and alert. Oriented x 3. ASSESSMENT: Presyncope Dizziness Recent UTI, on antibiotics Hyperlipidemia Hypertension Possible history of TIA per patient PLAN: Obtain 2D echo to assess cardiac structure and function 14 day event monitor at discharge Continue home cardiac medications Continue telemetry monitoring Possible discharge this afternoon Patient to follow up outpatient with Dr. Sylvester Nurse practitioner note has been reviewed by physician. Signing provider agrees with the documented findings, assessment, and plan of care. Past Medical History Past Medical History: COPD, Hypertension History of Any Multi-Drug Resistant Organisms: None Reported Past Surgical History: Hysterectomy Past Anesthesia/Blood Transfusion Reactions: No Reported Reaction Past Psychological History: No Psychological Hx Reported Smoking Status: Former smoker Past Alcohol Use History: Rare Past Drug Use History: None Reported - Past Family History Daughter(s) Additional Family Medical History / Comment(s): gallbladder removed Medications and Allergies Home Medications Medication Instructions Recorded Confirmed Type Atorvastatin [Lipitor] 20 mg PO HS #30 tab 12/22/18 05/19/22 Rx Ipratropium-Albuterol Nebulize 3 ml INHALATION RT-QID 30 Days 12/22/18 05/19/22 Rx [Duoneb 0.5 mg-3 mg/3 ml Soln] ampul.neb Losartan [Cozaar] 50 mg PO DAILY #30 tab 12/22/18 05/19/22 Rx Metoprolol Tartrate [Lopressor] 50 mg PO BID #60 tab 12/22/18 05/19/22 Rx Albuterol Sulfate [Albuterol 2 puff PO RT-Q4H PRN 05/19/22 05/19/22 History Sulfate Hfa] Aspirin 162 mg PO DAILY 05/19/22 05/19/22 History Budesonide-Formot 160-4.5 Mcg 2 puff INHALATION RT-BID 05/19/22 05/19/22 History [Symbicort 160-4.5 Mcg Inhaler] hydroCHLOROthiazide 25 mg PO DAILY 05/19/22 05/19/22 History Allergies Allergy/AdvReac Type Severity Reaction Status Date / Time No Known Allergies Allergy Verified 05/19/22 22:02 Physical Exam Vitals: Vital Signs Temp Pulse Pulse Resp BP BP BP 05/20/22 08:00 97.8 F 90 18 148/82 120/56 05/20/22 04:00 64 18 05/20/22 02:00 95 18 05/20/22 00:00 97.7 F 95 18 05/19/22 22:54 92 18 133/60 05/19/22 21:42 98.1 F 05/19/22 21:37 96 20 139/69 05/19/22 20:33 103 H 127/56 05/19/22 20:29 93 135/57 05/19/22 20:28 82 05/19/22 19:57 97.5 F L 88 20 137/65 BP BP Pulse Ox 05/20/22 08:00 162/68 99 05/20/22 04:00 114/56 95 05/20/22 02:00 05/20/22 00:00 123/56 96 05/19/22 22:54 96 05/19/22 21:42 05/19/22 21:37 96 05/19/22 20:33 05/19/22 20:29 05/19/22 20:28 146/65 05/19/22 19:57 98 Intake and Output 05/19/22 05/20/22 05/20/22 22:59 06:59 14:59 Output Total 98 Balance -98 Output: Post Void Residual 98 Other: Voiding Method Bedside Commode Bedside Commode # Voids 0 2 1 Weight 56.699 kg Results 05/20/22 06:32 05/20/22 06:48 Cardiac Enzymes 05/19/22 05/19/22 05/20/22 Range/Units 20:34 20:34 06:48 AST 24 23 (14-36) U/L Troponin I <0.012 (0.000-0.034) ng/mL CBC 05/19/22 05/20/22 Range/Units 20:34 06:32 WBC 10.0 6.8 (3.8-10.6) k/uL RBC 3.51 L 3.34 L (3.80-5.40) m/uL Hgb 10.2 L 10.0 L (11.4-16.0) gm/dL Hct 32.1 L 31.3 L (34.0-46.0) % Plt Count 365 325 (150-450) k/uL Comprehensive Metabolic Panel 05/19/22 05/20/22 Range/Units 20:34 06:48 Sodium 132 L 135 L (137-145) mmol/L Potassium 4.2 4.5 (3.5-5.1) mmol/L Chloride 94 L 101 (98-107) mmol/L Carbon Dioxide 24 23 (22-30) mmol/L BUN 21 H 20 H (7-17) mg/dL Creatinine 1.27 H 1.12 H (0.52-1.04) mg/dL Glucose 173 H 128 H (74-99) mg/dL Calcium 9.9 9.2 (8.4-10.2) mg/dL AST 24 23 (14-36) U/L ALT 13 12 (4-34) U/L Alkaline Phosphatase 90 78 (38-126) U/L Total Protein 7.0 6.5 (6.3-8.2) g/dL Albumin 4.4 3.9 (3.5-5.0) g/dL Current Medications Generic Name Dose Route Start Last Admin Trade Name Freq PRN Reason Stop Dose Admin Acetaminophen 650 mg 05/19/22 22:25 05/19/22 22:37 Acetaminophen Tab 325 Mg Tab PO 650 mg Q6HR PRN Administration Mild Pain or Fever > 100.5 Albuterol Sulfate 2.5 mg 05/19/22 22:28 Albuterol Nebulized 2.5 Mg/3 Ml INHALATION RT-Q4H PRN Shortness Of Breath Albuterol/Ipratropium 3 ml 05/19/22 22:30 Ipratropium-Albuterol 3 Ml Neb INHALATION RT-QID PRN Shortness Of Breath Or Wheezing Aspirin 162 mg 05/20/22 09:00 05/20/22 09:49 Aspirin 81 Mg PO 162 mg DAILY [facility] Administration Atorvastatin Calcium 20 mg 05/20/22 21:00 Atorvastatin 20 Mg Tab PO [facility] Budesonide/Formoterol Fumarate 2 puff 05/20/22 08:00 Symbicort 160-4.5 Mcg Inhaler INHALATION RT-BID [facility] Enoxaparin Sodium 60 mg 05/20/22 09:00 05/20/22 09:50 Enoxaparin 60 Mg/0.6 Ml Syringe SQ 60 mg DAILY [facility] Administration Famotidine 20 mg 05/20/22 09:00 05/20/22 09:50 Famotidine 20 Mg/2 Ml Vial IV 20 mg Q24HR [facility] Administration Hydrochlorothiazide 25 mg 05/20/22 09:00 05/20/22 09:49 Hydrochlorothiazide 25 Mg Tab PO 25 mg DAILY [facility] Administration Sodium Chloride 1,000 mls @ 75 mls/hr 05/19/22 22:30 05/19/22 22:37 Saline 0.9% IV 75 mls/hr .[id number] [facility] Administration Metoprolol Tartrate 50 mg 05/20/22 09:00 05/20/22 09:49 Metoprolol Tartrate 50 Mg Tab PO 50 mg BID [facility] Administration Morphine Sulfate 4 mg 05/19/22 22:25 Morphine Sulfate 4 Mg/Ml Syringe IV Q4HR PRN Severe Pain Naloxone HCl 0.2 mg 05/19/22 22:25 Naloxone 0.4 Mg/Ml 1 Ml Vial IV Q2M PRN Opioid Reversal Ondansetron HCl 4 mg 05/19/22 22:25 Ondansetron 4 Mg/2 Ml Vial IVP Q8HR PRN Nausea And Vomiting Intake and Output 05/19/22 05/20/22 05/20/22 22:59 06:59 14:59 Output Total 98 Balance -98 Output: Post Void Residual 98 Other: Voiding Method Bedside Commode Bedside Commode # Voids 0 2 1 Weight 56.699 kg 05/20/22 06:32 05/20/22 06:48
--- NOTE | 2022-05-20 12:40 | CA ---
Transthoracic Echo Report Name: Liliam Talbot Age: 77 Gender: F : 1945 Exam Date: 05/20/2022 10:03 Exam Location: [facility] Ht (in): 65 Wt (lb): 125 Ordering Physician: Josh Bautista MD Attending/Referring Phys: Nurse Aide Evaluator Lucille Michelle RDCS Procedure CPT: Indications: Rule out heart disease Cardiac Hx: Technical Quality: Technically difficult study Contrast 1: Lumason Total Dose (mL): Contrast 2: Total Dose (mL): MEASUREMENTS (Male / Female) Normal Values 2D ECHO LV Diastolic Diameter PLAX 3.3 cm 4.2 - 5.9 / 3.9 - 5.3 cm LV Systolic Diameter PLAX 2.7 cm IVS Diastolic Thickness 1.2 cm 0.6 - 1.0 / 0.6 - 0.9 cm LVPW Diastolic Thickness 1.3 cm 0.6 - 1.0 / 0.6 - 0.9 cm LV Relative Wall Thickness 0.7 RV Internal Dim ED PLAX 2.5 cm DOPPLER MV Area PHT 3.7 cm??? Mitral E Point Velocity 52.9 cm/s Mitral A Point Velocity 74.5 cm/s Mitral E to A Ratio 0.7 MV Deceleration Time 203.9 ms MV E' Velocity 4.7 cm/s Mitral E to MV E' Ratio 11.3 FINDINGS Left Ventricle Left ventricular ejection fraction is estimated at 45-50%. Mildly increased left ventricular wall thickness. Apical hypokinesis. Right Ventricle Normal right ventricular size and function. Right Atrium Normal right atrial size. Left Atrium Normal left atrial size. Mitral Valve Structurally normal mitral valve. Mild mitral regurgitation. Aortic Valve Trileaflet aortic valve. Tricuspid Valve Structurally normal tricuspid valve. Mild tricuspid regurgitation. Pulmonic Valve Pulmonic valve not well visualized. Pericardium Normal pericardium. Aorta Normal size aortic root and proximal ascending aorta. CONCLUSIONS Impaired LV function with EF around 45% with anterior and apical hypokinesia Previewed by: Dr. Trenton Ambrosio MD (Electronically Signed) Final Date: 20 May 2022 12:40
--- NOTE | 2022-05-20 14:35 | P.CNPUL ---
History of Present Illness Consult date: 05/20/22 Requesting physician: Otf Alcala Reason for consult: other (Near syncope) Chief complaint: Dizziness, near syncopal episode History of present illness: This is a pleasant 77-year-old female patient with a known history of hypertension, hyperlipidemia, chronic and ongoing tobacco dependence with chronic obstructive pulmonary disease with an FEV1 value of 41% of predicted. She is on home oxygen. She is on Symbicort and DuoNeb inhalations and she follows with Dr. Barr in our office. She presented here to the emergency room yesterday after sustaining a near syncopal episode. She states she was standing in her kitchen when she had some dizziness and then did go down to the floor but unsure if any true loss of consciousness. Computed tomography scan of the brain revealed no acute intracranial process. A ventilation/perfusion scan ruled out pulmonary embolism. Dopplers revealed no DVT. Chest x-ray revealed no acute cardiopulmonary process. EKG revealed normal sinus rhythm with some mild ST and T wave abnormalities in the lateral leads. Echocardiogram did reveal mildly impaired left ventricular systolic function with ejection fraction 45-50% with apical hypokinesis. Troponin negative 1. D-dimer 29.4. White count 6.8. Hemoglobin 10.0. Platelets 325. Sodium 135. Potassium 4.5. BUN 20. Creatinine 1.12. Glucose 128. Coronavirus by PCR not detected. She is seen today in consultation on the selective care unit. She is currently resting comfortably in bed. Awake and alert in no acute distress. No further episodes of dizziness or near syncope. No cough or congestion. No shortness of breath. She states she did have her oxygen on when this episode happened. She is maintaining O2 saturations up to 99% on 2 L/m per nasal cannula. She's afebrile. No significant orthostatic hypotension detected. She is continued on her Symbicort and DuoNeb inhalations. Normal saline at 75 ML's per hour and Lovenox for DVT prophylaxis. Review of Systems REVIEW OF SYSTEMS: CONSTITUTIONAL: Denies any recent significant weight loss or weight gain. EYES: Denies change in vision. EARS, NOSE, MOUTH, THROAT: Denies headaches, denies sore throat. CARDIOVASCULAR: Episode of dizziness and near syncopal episode. RESPIRATORY: Denies shortness of breath, cough, congestion or hemoptysis. GASTROINTESTINAL: Denies change in appetite, denies abdominal pain GENITOURINARY: Denies hematuria, denies infections. MUSKULOSKELETAL: Denies pain, denies swelling. INTEGUMENTARY: Denies rash, denies eczema. NEUROLOGICAL: Denies recent memory loss, no recent seizure activity. PSYCHIATRIC: Denies anxiety, denies depression. HEMATOLOGIC/LYMPHATIC: Denies anemia, denies enlarged lymph nodes. Past Medical History Past Medical History: COPD, Hypertension History of Any Multi-Drug Resistant Organisms: None Reported Past Surgical History: Hysterectomy Past Anesthesia/Blood Transfusion Reactions: No Reported Reaction Past Psychological History: No Psychological Hx Reported Smoking Status: Former smoker Past Alcohol Use History: Rare Past Drug Use History: None Reported - Past Family History Daughter(s) Additional Family Medical History / Comment(s): gallbladder removed Medications and Allergies Home Medications Medication Instructions Recorded Confirmed Type Atorvastatin [Lipitor] 20 mg PO HS #30 tab 12/22/18 05/19/22 Rx Ipratropium-Albuterol Nebulize 3 ml INHALATION RT-QID 30 Days 12/22/18 05/19/22 Rx [Duoneb 0.5 mg-3 mg/3 ml Soln] ampul.neb Losartan [Cozaar] 50 mg PO DAILY #30 tab 12/22/18 05/19/22 Rx Metoprolol Tartrate [Lopressor] 50 mg PO BID #60 tab 12/22/18 05/19/22 Rx Albuterol Sulfate [Albuterol 2 puff PO RT-Q4H PRN 05/19/22 05/19/22 History Sulfate Hfa] Aspirin 162 mg PO DAILY 05/19/22 05/19/22 History Budesonide-Formot 160-4.5 Mcg 2 puff INHALATION RT-BID 05/19/22 05/19/22 History [Symbicort 160-4.5 Mcg Inhaler] hydroCHLOROthiazide 25 mg PO DAILY 05/19/22 05/19/22 History Allergies Allergy/AdvReac Type Severity Reaction Status Date / Time No Known Allergies Allergy Verified 05/19/22 22:02 Physical Exam Vitals: Vital Signs Temp Pulse Pulse Resp BP BP BP 05/20/22 11:38 76 05/20/22 11:23 76 05/20/22 08:00 97.8 F 90 18 148/82 120/56 05/20/22 04:00 64 18 05/20/22 02:00 95 18 05/20/22 00:00 97.7 F 95 18 05/19/22 22:54 92 18 133/60 05/19/22 21:42 98.1 F 05/19/22 21:37 96 20 139/69 05/19/22 20:33 103 H 127/56 05/19/22 20:29 93 135/57 05/19/22 20:28 82 05/19/22 19:57 97.5 F L 88 20 137/65 BP BP Pulse Ox 05/20/22 11:38 05/20/22 11:23 05/20/22 08:00 162/68 99 05/20/22 04:00 114/56 95 05/20/22 02:00 05/20/22 00:00 123/56 96 05/19/22 22:54 96 05/19/22 21:42 05/19/22 21:37 96 05/19/22 20:33 05/19/22 20:29 05/19/22 20:28 146/65 05/19/22 19:57 98 Intake and Output 05/19/22 05/20/22 05/20/22 22:59 06:59 14:59 Output Total 98 Balance -98 Output: Post Void Residual 98 Other: Voiding Method Bedside Commode Bedside Commode # Voids 0 2 1 Weight 56.699 kg GENERAL EXAM: Alert, pleasant 77-year-old female patient, on 2 L nasal cannula, comfortable in no apparent distress. HEAD: Normocephalic. EYES: Normal reaction of pupils, equal size. NOSE: Clear with pink turbinates. THROAT: No erythema or exudates. NECK: No masses, no JVD. CHEST: No chest wall deformity. LUNGS: Equal air entry with no crackles, wheeze, rhonchi or dullness. CVS: S1 and S2 normal with no audible murmur, regular rhythm. ABDOMEN: No hepatosplenomegaly, normal bowel sounds, no guarding or rigidity. SPINE: No scoliosis or deformity SKIN: No rashes CENTRAL NERVOUS SYSTEM: No focal deficits, tone is normal in all 4 extremities. EXTREMITIES: There is no peripheral edema. No clubbing, no cyanosis. Peripheral pulses are intact. Results - Laboratory Findings CBC and BMP: 05/20/22 06:32 05/20/22 06:48 PT/INR, D-dimer D-Dimer 29.44 mg/L FEU (<0.60) H 05/19/22 20:34 Abnormal lab findings: Abnormal Labs 05/19/22 05/19/22 05/19/22 20:34 20:34 20:34 RBC 3.51 L Hgb 10.2 L Hct 32.1 L Neutrophils # 7.8 H D-Dimer 29.44 H Sodium 132 L Chloride 94 L BUN 21 H Creatinine 1.27 H Glucose 173 H Hemoglobin A1c Ur Leukocyte Esterase Urine WBC Urine Bacteria 05/20/22 05/20/22 05/20/22 01:38 06:32 06:48 RBC 3.34 L Hgb 10.0 L Hct 31.3 L Neutrophils # D-Dimer Sodium 135 L Chloride BUN 20 H Creatinine 1.12 H Glucose 128 H Hemoglobin A1c Ur Leukocyte Esterase Moderate H Urine WBC 7 H Urine Bacteria Rare H 05/20/22 06:48 RBC Hgb Hct Neutrophils # D-Dimer Sodium Chloride BUN Creatinine Glucose Hemoglobin A1c 6.9 H Ur Leukocyte Esterase Urine WBC Urine Bacteria - Diagnostic Findings Chest x-ray: image reviewed Assessment and Plan Assessment: Near syncopal/syncopal episode of unclear etiology with minor EKG changes and negative troponin. Echocardiogram revealed mildly impaired left ventricular systolic function with ejection fraction 45-50% better. There is some apical hypokinesia. 2 scan of the brain revealed no acute intracranial process Elevated d-dimer over no PE noted on ventilation/perfusion scan. Dopplers lower extremities negative Severe oxygen dependent chronic obstructive pulmonary disease with an FEV1 value of 41% of predicted. Currently inactive and stable Former smoker Hypertension, no evidence of orthostatic hypotension Opal: The patient was seen and evaluated VQ scan, Dopplers, EKG, echocardiogram, x-ray and labs reviewed Stable from the pulmonary standpoint Continue her Symbicort and DuoNeb inhalations Continue her home oxygen dose at 2 L/m per nasal cannula We will continue to follow and make further recommendations based on her clinical status I have personally seen and examined the patient, performed the documentation and the assessment and plan as written. Number of minutes spent on the visit: 20.
[2022-05-20] MEDS: ACETAMINOPHEN TAB 325 MG TAB PO PRN (17:10)
[2022-05-20] MEDS: ALBUTEROL NEBULIZED 2.5 MG/3 ML INHALATION PRN (19:44)
--- NOTE | 2022-05-20 20:26 | P.HPIM ---
History of Present Illness This is a pleasant 77 years old female with past medical history of COPD, hypertension. Her PCP is Dr. Barr Presents because of syncopal episodes information obtained from the patient, and sister at bedside as well as medical records and staff. Patient lives at home with her , she was taken when suddenly she felt dizzy and fell to the ground, she denies any trauma or hitting her head Currently she states she is back to her baseline, she still complains from some pain in her left foot and left leg. But did not chest pain or dyspnea. No vomiting or diarrhea or abdominal pain. No seizure-like activity or urine or bowel incontinence, no tongue biting. No urinary complaints like no dysuria or urgency. No coughing. She denies smoking, alcohol or illicit tracts. Vitals are stable and patient is afebrile. Labs show an unremarkable CBC except for mild anemia. She had elevated d-dimer 29.4. Sodium 132, creatinine elevated at 1.27 baseline is 1.0-1.2. Liver enzymes are normal Troponin is negative and proBNP is normal to 73. Urine analysis showed only moderate leukocyte esterase. Coronavirus: Not detected. EKG showed normal sinus rhythm at [address] segment in the lateral blades CT of the head and neck: No acute process intracranially are evident. In the emergency room received 1 dose of Lovenox 60 mg, and continue to normal saline 75 mL/h Pulmonary team already consulted, VQ scan is also requested Echocardiogram from 2019 showing ejection fraction of 40-45% Bladder scan was checked and was only 98 Review of Systems Review of systems CONSTITUTIONAL: No fever, no malaise, no fatigue. HEENT: No recent visual problems or hearing problems. Denied any sore throat. CARDIOVASCULAR: No orthopnea, PND, no palpitations, no syncope. PULMONARY: No shortness of breath, no cough, no hemoptysis. GASTROINTESTINAL: No diarrhea, no nausea, no vomiting, no abdominal pain. Normoactive bowel sounds. NEUROLOGICAL: No headaches, no weakness, no numbness. HEMATOLOGICAL: Denies any bleeding or petechiae. GENITOURINARY: Denies any burning micturition, frequency, or urgency. MUSCULOSKELETAL/RHEUMATOLOGICAL: Denies any joint pain, swelling, or any muscle pain. ENDOCRINE: Denies any polyuria or polydipsia. Past Medical History Past Medical History: COPD, Hypertension History of Any Multi-Drug Resistant Organisms: None Reported Past Surgical History: Hysterectomy Past Anesthesia/Blood Transfusion Reactions: No Reported Reaction Past Psychological History: No Psychological Hx Reported Smoking Status: Former smoker Past Alcohol Use History: Rare Past Drug Use History: None Reported - Past Family History Daughter(s) Additional Family Medical History / Comment(s): gallbladder removed Medications and Allergies Home Medications Medication Instructions Recorded Confirmed Type Atorvastatin [Lipitor] 20 mg PO HS #30 tab 12/22/18 05/19/22 Rx Ipratropium-Albuterol Nebulize 3 ml INHALATION RT-QID 30 Days 12/22/18 05/19/22 Rx [Duoneb 0.5 mg-3 mg/3 ml Soln] ampul.neb Losartan [Cozaar] 50 mg PO DAILY #30 tab 12/22/18 05/19/22 Rx Metoprolol Tartrate [Lopressor] 50 mg PO BID #60 tab 12/22/18 05/19/22 Rx Albuterol Sulfate [Albuterol 2 puff PO RT-Q4H PRN 05/19/22 05/19/22 History Sulfate Hfa] Aspirin 162 mg PO DAILY 05/19/22 05/19/22 History Budesonide-Formot 160-4.5 Mcg 2 puff INHALATION RT-BID 05/19/22 05/19/22 History [Symbicort 160-4.5 Mcg Inhaler] hydroCHLOROthiazide 25 mg PO DAILY 05/19/22 05/19/22 History Allergies Allergy/AdvReac Type Severity Reaction Status Date / Time No Known Allergies Allergy Verified 05/19/22 22:02 Physical Exam Vitals: Vital Signs Temp Pulse Pulse Resp BP BP BP 05/20/22 04:00 64 18 05/20/22 02:00 95 18 05/20/22 00:00 97.7 F 95 18 05/19/22 22:54 92 18 133/60 05/19/22 21:42 98.1 F 05/19/22 21:37 96 20 139/69 05/19/22 20:33 103 H 127/56 05/19/22 20:29 93 135/57 05/19/22 20:28 82 05/19/22 19:57 97.5 F L 88 20 137/65 BP BP Pulse Ox 05/20/22 04:00 114/56 95 05/20/22 02:00 05/20/22 00:00 123/56 96 05/19/22 22:54 96 05/19/22 21:42 05/19/22 21:37 96 05/19/22 20:33 05/19/22 20:29 05/19/22 20:28 146/65 05/19/22 19:57 98 Intake and Output 05/19/22 05/19/22 05/20/22 14:59 22:59 06:59 Other: Voiding Method Bedside Commode # Voids 0 2 Weight 56.699 kg GENERAL: The patient is alert and oriented x3, not in any acute distress. Well developed, well nourished. HEENT: Pupils are round and equally reacting to light. EOMI. No scleral icterus. No conjunctival pallor. Normocephalic, atraumatic. No pharyngeal erythema. No thyromegaly. CARDIOVASCULAR: S1 and S2 present. No murmurs, rubs, or gallops. PULMONARY: Chest is clear to auscultation, no wheezing or crackles. ABDOMEN: Soft, nontender, nondistended, normoactive bowel sounds. No palpable organomegaly. MUSCULOSKELETAL: No joint swelling or deformity. EXTREMITIES: No cyanosis, clubbing, or pedal edema. NEUROLOGICAL: Gross neurological examination did not reveal any focal deficits. SKIN: No rashes. no petechiae. Results CBC & Chem 7: 05/20/22 06:32 05/20/22 06:48 Labs: Abnormal Lab Results - Last 24 Hours (Table) 05/19/22 05/19/22 05/19/22 Range/Units 20:34 20:34 20:34 RBC 3.51 L (3.80-5.40) m/uL Hgb 10.2 L (11.4-16.0) gm/dL Hct 32.1 L (34.0-46.0) % Neutrophils # 7.8 H (1.3-7.7) k/uL D-Dimer 29.44 H (<0.60) mg/L FEU Sodium 132 L (137-145) mmol/L Chloride 94 L (98-107) mmol/L BUN 21 H (7-17) mg/dL Creatinine 1.27 H (0.52-1.04) mg/dL Glucose 173 H (74-99) mg/dL Ur Leukocyte Esterase (Negative) Urine WBC (0-5) /hpf Urine Bacteria (None) /hpf 05/20/22 Range/Units 01:38 RBC (3.80-5.40) m/uL Hgb (11.4-16.0) gm/dL Hct (34.0-46.0) % Neutrophils # (1.3-7.7) k/uL D-Dimer (<0.60) mg/L FEU Sodium (137-145) mmol/L Chloride (98-107) mmol/L BUN (7-17) mg/dL Creatinine (0.52-1.04) mg/dL Glucose (74-99) mg/dL Ur Leukocyte Esterase Moderate H (Negative) Urine WBC 7 H (0-5) /hpf Urine Bacteria Rare H (None) /hpf Thrombosis Risk Factor Assmnt - Choose All That Apply Each Risk Factor Represents 3 Points: Age 75 years or older Thrombosis Risk Factor Assessment Total Risk Factor Score: 3 Thrombosis Risk Factor Assessment Level: Moderate Risk Assessment and Plan Assessment: Acute syncope, rule out cardiac causes elevated d-dimer COPD History of cardiomyopathy Hypertension Elevated creatinine, Possible chronic kidney stage III Plan: This is a pleasant 77 years old female who presents with syncope follow-up VQ scan Check venous Doppler of the legs Check orthostatic vitals Check vitamin B12 and folate, check TSH and hemoglobin A1c EKG changes looks chronic, however patient has history of cardiomyopathy therefore going to put Cardiology consult. Check echocardiogram hold losartan 50 mg to see there is any benefit on the kidney function . Check bladder scan and monitor creatinine Labs and medication were reviewed.. Continue same treatment. Continue with symptomatic treatment. Resume home medication. Monitor lytes and vitals. DVT and GI prophylaxis. Further recommendations as per clinical course of the patient DVT prophylaxis: Subcutaneous Lovenox GI Prophylaxis: Pepcid PT/OT: Pending Prognosis is guarded
[2022-05-20] MEDS: ATORVASTATIN 20 MG TAB PO SCH (21:28)
--- NOTE | 2022-05-20 21:31 | XR ---
EXAMINATION TYPE: XR foot limited LT DATE OF EXAM: 05/20/2022 COMPARISON: NONE HISTORY: Pain TECHNIQUE: 2 views FINDINGS: There is osteopenia. Metatarsals are intact. There is plantar calcaneal spurring. No fractu re seen. IMPRESSION: No acute abnormality of the left foot.
--- NOTE | 2022-05-20 21:32 | XR ---
EXAMINATION TYPE: XR tibia fibula LT DATE OF EXAM: 05/20/2022 COMPARISON: NONE HISTORY: Pain TECHNIQUE: 2 views FINDINGS: There is some osteopenia. No fracture nor dislocation. Knee joint and ankle joint are anato awa. IMPRESSION: No acute abnormality of the left tibia and fibula.
[2022-05-21] MEDS: ACETAMINOPHEN TAB 325 MG TAB PO PRN (00:10)
[2022-05-21] MEDS: SODIUM CHLORIDE 0.9% 1,000 ML IV SCH (04:35)
[2022-05-21] MEDS: ALBUTEROL NEBULIZED 2.5 MG/3 ML INHALATION PRN ×4 (08:27→19:45)
[2022-05-21] MEDS: SYMBICORT 160-4.5 MCG INHALER INHALATION SCH ×2 (08:28→19:46)
[2022-05-21] MEDS ORDERED: ENOXAPARIN 60 MG/0.6 ML SYRINGE SQ SCH (09:00)
[2022-05-21] MEDS ORDERED: ENOXAPARIN 30 MG/0.3 ML SYRINGE SQ SCH (09:00)
[2022-05-21] MEDS: FAMOTIDINE 20 MG/2 ML VIAL IV SCH (09:05)
[2022-05-21] MEDS: METOPROLOL TARTRATE 50 MG TAB PO SCH ×2 (09:05→20:27)
[2022-05-21] MEDS: hydroCHLOROthiazide 25 MG TAB PO SCH (09:05)
[2022-05-21] MEDS: ASPIRIN 81 MG PO SCH (09:05)
--- NOTE | 2022-05-21 12:35 | P.PN ---
Subjective Progress Note Date: 05/21/22 Principal diagnosis: Dizziness, near syncopal episode This is a pleasant 77-year-old female patient with a known history of hypertension, hyperlipidemia, chronic and ongoing tobacco dependence with chronic obstructive pulmonary disease with an FEV1 value of 41% of predicted. She is on home oxygen. She is on Symbicort and DuoNeb inhalations and she follows with Dr. Barr in our office. She presented here to the emergency room yesterday after sustaining a near syncopal episode. She states she was standing in her kitchen when she had some dizziness and then did go down to the floor but unsure if any true loss of consciousness. Computed tomography scan of the brain revealed no acute intracranial process. A ventilation/perfusion scan ruled out pulmonary embolism. Dopplers revealed no DVT. Chest x-ray revealed no acute cardiopulmonary process. EKG revealed normal sinus rhythm with some mild ST and T wave abnormalities in the lateral leads. Echocardiogram did reveal mildly impaired left ventricular systolic function with ejection fraction 45-50% with apical hypokinesis. Troponin negative 1. D-dimer 29.4. White count 6.8. Hemoglobin 10.0. Platelets 325. Sodium 135. Potassium 4.5. BUN 20. Creatinine 1.12. Glucose 128. Coronavirus by PCR not detected. She is seen today in consultation on the selective care unit. She is currently resting comfortably in bed. Awake and alert in no acute distress. No further episodes of dizziness or near syncope. No cough or congestion. No shortness of breath. She states she did have her oxygen on when this episode happened. She is maintaining O2 saturations up to 99% on 2 L/m per nasal cannula. She's afebrile. No significant orthostatic hypotension detected. She is continued on her Symbicort and DuoNeb inhalations. Normal saline at 75 ML's per hour and Lovenox for DVT prophylaxis. On 05/21/2022 patient seen in follow-up on selective care unit. She is awake and alert, in no acute distress, remains on 3 L of oxygen pulse ox is 99%. Has any worsening dyspnea or chest discomfort. VQ scan showed no perfusion abnormality to suggest pulmonary embolism. Chest x-ray showed no acute abnormality. His labs have been reviewed. Foot x-ray shows no acute abnormality of the left foot. X-ray of the left tibia and fibula showed no acute abnormality Objective - Vital Signs Vital signs: Vital Signs Temp 98.6 F 05/21/22 08:00 Pulse 92 05/21/22 12:13 Resp 16 05/21/22 08:00 BP 110/54 05/21/22 08:00 Pulse Ox 99 05/21/22 08:28 FiO2 Intake & Output 05/20/22 05/21/22 05/21/22 18:59 06:59 18:59 Intake Total 600 225 Balance 600 225 Intake: Oral 600 225 Other: Voiding Method Bedside Commode Bedside Commode Bedside Commode # Voids 2 1 1 - Exam GENERAL EXAM: Alert, very pleasant, 77-year-old white female on 3 L of oxygen with pulse ox of 99%, comfortable in no apparent distress. HEAD: Normocephalic/atraumatic. EYES: Normal reaction of pupils, equal size. Conjunctiva pink, sclera white. NOSE: Clear with pink turbinates. THROAT: No erythema or exudates. NECK: No masses, no JVD, no thyroid enlargement, no adenopathy. CHEST: No chest wall deformity. Symmetrical expansion. LUNGS: Equal air entry with no crackles, wheeze, rhonchi or dullness. CVS: Regular rate and rhythm, normal S1 and S2, no gallops, no murmurs, no rubs ABDOMEN: Soft, nontender. No hepatosplenomegaly, normal bowel sounds, no guarding or rigidity. EXTREMITIES: No clubbing, no edema, no cyanosis, 2+ pulses and upper and lower extremities. Left foot is covered with Luis wrap dressing MUSCULOSKELETAL: Muscle strength and tone normal. SPINE: No scoliosis or deformity SKIN: No rashes CENTRAL NERVOUS SYSTEM: Alert and oriented -3. No focal deficits, tone is normal in all 4 extremities. PSYCHIATRIC: Alert and oriented -3. Appropriate affect. Intact judgment and insight. - Labs CBC & Chem 7: 05/20/22 06:32 05/20/22 06:48 Assessment and Plan Plan: Assessment: Near syncopal/syncopal episode of unclear etiology with minor EKG changes and negative troponin. Echocardiogram revealed mildly impaired left ventricular systolic function with ejection fraction 45-50% better. There is some apical hypokinesia. 2 scan of the brain revealed no acute intracranial process Elevated d-dimer over no PE noted on ventilation/perfusion scan. Dopplers lower extremities negative Severe oxygen dependent chronic obstructive pulmonary disease with an FEV1 value of 41% of predicted. Currently inactive and stable Former smoker Hypertension, no evidence of orthostatic hypotension Plan: Patient is doing well No dyspnea, vital signs are stable COPD is stable Continue Symbicort and DuoNeb From pulmonary perspective she can be considered for discharge home if cleared by cardiology and medicine I have personally seen and examined the patient, performed the documentation and the assessment and plan as written. Number of minutes spent on the visit: [15] Time with Patient: Less than 30
--- NOTE | 2022-05-21 12:39 | P.PN ---
Subjective Progress Note Date: 05/21/22 HISTORY OF PRESENT ILLNESS: This is a 77-year-old female with a past medical history significant for hyperlipidemia, hypertension, and possible TIA per patient. 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 We have been asked to see the patient in consultation for syncope. Patient examined at the bedside. Patient states she was diagnosed with a UTI a few weeks ago. She reports being on two different antibiotics. She states yesterday she was in the kitchen cooking. She states t hat she be in to feel dizzy. She states that she told her she was feeling dizzy and she then fell to the floor. She her is at the bedside and states that as soon as he walked over to the patient she was all ready trying to get herself up off the floor. The patient did not lose consciousness. She denies any chest pain or pressure. She denies any shortness of breath. She denies any previous history of syncope. * EKG reveals sinus mechanism with ST depression in V5V6, similar to previous EKG. EKG with baseline artifact. * Chest xray negative for acute process * Lower extremity Doppler: Negative for DVT bilaterally * VQ scan: Negative for PE * Laboratory data: WBC 6.8. Hemoglobin 10.0. Platelet count 325. D-dimer 29.44. Sodium 135. Potassium 4.5. BUN 20. Creatinine 1.12. Troponin negative 1. ProBNP 273. TSH 1.410. * Current home cardiac medications include aspirin 162 mg daily, metoprolol titrate 50 mg twice a day, losartan 50 mg daily, hydrochlorothiazide 25 mg daily, atorvastatin 20 mg at night * Most recent echocardiogram obtained in December 2018 revealed ejection fraction 40-45% with basal inferior, basal inferior septal, mid inferior, apical inferior hypokinesis, mild MR, mild TR * Cardiac catheterization history: Patient denies 05/21/2022 Patient examined this morning at the bedside. Patient denies chest pain or pressure. She denies shortness of breath. Vital signs are stable. She is hoping to be discharged home today. Patient underwent echocardiogram revealing ejection fraction 45-50% with anterior and apical hypokinesis, which is similar to her previous echocardiogram. PHYSICAL EXAM: VITAL SIGNS: Reviewed. GENERAL: Well-developed in no acute distress. HEENT: Head is normocephalic. Pupils are equal, round. Sclerae anicteric. Mucous membranes of the mouth are moist. Neck supple. No JVD or thyromegaly LUNGS: Respirations even and unlabored. Lungs essentially clear to auscultation bilaterally. HEART: Regular rate and rhythm. S1 and S2 heard. ABDOMEN: Soft. Nondistended. Nontender. EXTREMITIES: Normal range of motion. No clubbing or cyanosis. Peripheral pulses intact. No lower extremity edema NEUROLOGIC: Awake and alert. Oriented x 3. ASSESSMENT: Presyncope Dizziness Recent UTI, on antibiotics Hyperlipidemia Hypertension Possible history of TIA per patient PLAN: Continue home cardiac medications Continue telemetry monitoring Patient to receive 14 day event monitor Anticipate discharge home this afternoon Patient to follow up outpatient with Dr. Sylvester Nurse practitioner note has been reviewed by physician. Signing provider agrees with the documented findings, assessment, and plan of care. Objective - Vital Signs Vital signs: Vital Signs Temp 98.6 F 05/21/22 08:00 Pulse 92 05/21/22 12:13 Resp 16 05/21/22 08:00 BP 110/54 05/21/22 08:00 Pulse Ox 99 05/21/22 08:28 FiO2 Intake & Output 05/20/22 05/21/22 05/21/22 18:59 06:59 18:59 Intake Total 600 225 Balance 600 225 Intake: Oral 600 225 Other: Voiding Method Bedside Commode Bedside Commode Bedside Commode # Voids 2 1 1 - Labs CBC & Chem 7: 05/20/22 06:32 05/20/22 06:48
--- NOTE | 2022-05-21 19:22 | P.PN ---
Subjective This is a pleasant 77 years old female with past medical history of COPD, hypertension. Her PCP is Dr. Barr Presents because of syncopal episodes information obtained from the patient, and sister at bedside as well as medical records and staff. Patient lives at home with her , she was taken when suddenly she felt dizzy and fell to the ground, she denies any trauma or hitting her head Currently she states she is back to her baseline, she still complains from some pain in her left foot and left leg. But did not chest pain or dyspnea. No vomiting or diarrhea or abdominal pain. No seizure-like activity or urine or bowel incontinence, no tongue biting. No urinary complaints like no dysuria or urgency. No coughing. She denies smoking, alcohol or illicit tracts. Vitals are stable and patient is afebrile. Labs show an unremarkable CBC except for mild anemia. She had elevated d-dimer 29.4. Sodium 132, creatinine elevated at 1.27 baseline is 1.0-1.2. Liver enzymes are normal Troponin is negative and proBNP is normal to 73. Urine analysis showed only moderate leukocyte esterase. Coronavirus: Not detected. EKG showed normal sinus rhythm at [address] segment in the lateral blades CT of the head and neck: No acute process intracranially are evident. In the emergency room received 1 dose of Lovenox 60 mg, and continue to normal saline 75 mL/h Pulmonary team already consulted, VQ scan is also requested Echocardiogram from 2019 showing ejection fraction of 40-45% Bladder scan was checked and was only 98 05/21/2022 Awake and alert fine denies any specific symptoms, no dysuria, no urgency, no chest pain or dyspnea. A midline to go home. Patient was cleared by profiling machine setup operator and refrigerator repair technician however profiling machine setup operator recommended event monitor Bladder scan was checked was 97. Patient has already home oxygen. By the time patient was ready for discharge has already left and he wants to pick her up tomorrow. Objective - Vital Signs Vital signs: Vital Signs Temp 98.6 F 05/21/22 08:00 Pulse 96 05/21/22 08:43 Resp 16 05/21/22 08:00 BP 110/54 05/21/22 08:00 Pulse Ox 99 05/21/22 08:28 FiO2 Intake & Output 05/20/22 05/21/22 05/21/22 18:59 06:59 18:59 Intake Total 600 225 Balance 600 225 Intake: Oral 600 225 Other: Voiding Method Bedside Commode Bedside Commode # Voids 2 1 1 - Exam GENERAL: The patient is alert and oriented x3, not in any acute distress. Well developed, well nourished. HEENT: Pupils are round and equally reacting to light. EOMI. No scleral icterus. No conjunctival pallor. Normocephalic, atraumatic. No pharyngeal erythema. No thyromegaly. CARDIOVASCULAR: S1 and S2 present. No murmurs, rubs, or gallops. PULMONARY: Chest is clear to auscultation, no wheezing or crackles. ABDOMEN: Soft, nontender, nondistended, normoactive bowel sounds. No palpable organomegaly. MUSCULOSKELETAL: No joint swelling or deformity. EXTREMITIES: No cyanosis, clubbing, or pedal edema. NEUROLOGICAL: Gross neurological examination did not reveal any focal deficits. SKIN: No rashes. no petechiae. - Labs CBC & Chem 7: 05/20/22 06:32 05/20/22 06:48 Labs: Abnormal Lab Results - Last 24 Hours (Table) 05/20/22 Range/Units 06:48 Hemoglobin A1c 6.9 H (0.0-6.0) % Assessment and Plan Assessment: Acute syncope, rule out cardiac causes elevated d-dimer COPD History of cardiomyopathy Hypertension Elevated creatinine, Possible chronic kidney stage III Plan: This is a pleasant 77 years old female who presents with syncope Patient clinically doing well. Continue to the same current medication Patient was cleared by refrigerator repair technician and profiling machine setup operator for discharge She'll need event monitor and she as per profiling machine setup operator Family wanted to the OR tomorrow Resume losartan at a lower dose 25 mg Labs and medication were reviewed.. Continue same treatment. Continue with symptomatic treatment. Resume home medication. Monitor lytes and vitals. DVT and GI prophylaxis. Further recommendations as per clinical course of the patient DVT prophylaxis: Subcutaneous Lovenox GI Prophylaxis: Pepcid PT/OT: Pending Prognosis is guarded
[2022-05-21] MEDS: ATORVASTATIN 20 MG TAB PO SCH (20:27)
[2022-05-22] MEDS: SODIUM CHLORIDE 0.9% 1,000 ML IV SCH (00:04)
[2022-05-22 00:38] VITALS: RESP 16; TEMP 97.7
[2022-05-22] MEDS: IPRATROPIUM-ALBUTEROL 3 ML NEB INHALATION PRN ×2 (07:24→11:29)
[2022-05-22] MEDS: SYMBICORT 160-4.5 MCG INHALER INHALATION SCH (07:24)
[2022-05-22] MEDS: METOPROLOL TARTRATE 50 MG TAB PO SCH (08:37)
[2022-05-22] MEDS: hydroCHLOROthiazide 25 MG TAB PO SCH (08:37)
[2022-05-22] MEDS: ASPIRIN 81 MG PO SCH (08:37)
[2022-05-22] MEDS ORDERED: ENOXAPARIN 40 MG/0.4 ML SYRINGE SQ SCH (09:00)
[2022-05-22] MEDS ORDERED: FAMOTIDINE 20 MG TAB PO SCH (09:00)
[2022-05-22] MEDS ORDERED: LOSARTAN 25 MG TAB PO SCH (09:00)
[2022-05-22 11:40] VITALS: PULSE 101
[2022-05-22 11:56] LABS: Glucose,Whole Blood 115 mg/dL (70-110)
[2022-05-22 12:54] VITALS: BP 117/70
--- NOTE | 2022-05-22 13:01 | P.PN ---
Subjective Progress Note Date: 05/22/22 HISTORY OF PRESENT ILLNESS: This is a 77-year-old female with a past medical history significant for hyperlipidemia, hypertension, and possible TIA per patient. 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 We have been asked to see the patient in consultation for syncope. Patient examined at the bedside. Patient states she was diagnosed with a UTI a few weeks ago. She reports being on two different antibiotics. She states yesterday she was in the kitchen cooking. She states t hat she be in to feel dizzy. She states that she told her she was feeling dizzy and she then fell to the floor. She her is at the bedside and states that as soon as he walked over to the patient she was all ready trying to get herself up off the floor. The patient did not lose consciousness. She denies any chest pain or pressure. She denies any shortness of breath. She denies any previous history of syncope. * EKG reveals sinus mechanism with ST depression in V5V6, similar to previous EKG. EKG with baseline artifact. * Chest xray negative for acute process * Lower extremity Doppler: Negative for DVT bilaterally * VQ scan: Negative for PE * Laboratory data: WBC 6.8. Hemoglobin 10.0. Platelet count 325. D-dimer 29.44. Sodium 135. Potassium 4.5. BUN 20. Creatinine 1.12. Troponin negative 1. ProBNP 273. TSH 1.410. * Current home cardiac medications include aspirin 162 mg daily, metoprolol titrate 50 mg twice a day, losartan 50 mg daily, hydrochlorothiazide 25 mg daily, atorvastatin 20 mg at night * Most recent echocardiogram obtained in December 2018 revealed ejection fraction 40-45% with basal inferior, basal inferior septal, mid inferior, apical inferior hypokinesis, mild MR, mild TR * Cardiac catheterization history: Patient denies 05/21/2022 Patient examined this morning at the bedside. Patient denies chest pain or pressure. She denies shortness of breath. Vital signs are stable. She is hoping to be discharged home today. Patient underwent echocardiogram revealing ejection fraction 45-50% with anterior and apical hypokinesis, which is similar to her previous echocardiogram. 05/22/2022 Patient examined this morning at the bedside. Patient denies chest pain or pressure. She denies shortness of breath. Vital signs are stable. Patient refusing event monitor yesterday. PHYSICAL EXAM: VITAL SIGNS: Reviewed. GENERAL: Well-developed in no acute distress. HEENT: Head is normocephalic. Pupils are equal, round. Sclerae anicteric. Mucous membranes of the mouth are moist. Neck supple. No JVD or thyromegaly LUNGS: Respirations even and unlabored. Lungs essentially clear to auscultation bilaterally. HEART: Regular rate and rhythm. S1 and S2 heard. ABDOMEN: Soft. Nondistended. Nontender. EXTREMITIES: Normal range of motion. No clubbing or cyanosis. Peripheral pulses intact. No lower extremity edema NEUROLOGIC: Awake and alert. Oriented x 3. ASSESSMENT: Presyncope Dizziness Recent UTI, on antibiotics Hyperlipidemia Hypertension Possible history of TIA per patient PLAN: Continue home cardiac medications Continue telemetry monitoring Will attempt to place event monitor today. Patient refused yesterday. Anticipate discharge home this afternoon Patient to follow up outpatient with Dr. Sylvester Nurse practitioner note has been reviewed by physician. Signing provider agrees with the documented findings, assessment, and plan of care. Objective - Vital Signs Vital signs: Vital Signs Temp 97.7 F 05/22/22 04:00 Pulse 101 H 05/22/22 12:00 Resp 16 05/22/22 12:00 BP 117/70 05/22/22 12:00 Pulse Ox 96 05/22/22 12:00 FiO2 Intake & Output 05/21/22 05/22/22 05/22/22 18:59 06:59 18:59 Intake Total 540 Balance 540 Intake: Oral 540 Other: Voiding Method Bedside Commode Toilet Toilet # Voids 1 2 1 - Labs CBC & Chem 7: 05/20/22 06:32 05/20/22 06:48 Labs: Abnormal Lab Results - Last 24 Hours (Table) 05/22/22 Range/Units 11:54 POC Glucose (mg/dL) 115 H (70-110) mg/dL
[2022-05-22] MEDS: ACETAMINOPHEN TAB 325 MG TAB PO PRN (13:44)
== END 2022-05-22 15:26 | disposition home or self-care (01) | DRG 312 ==
LOC: EC 19:55 → 3SCARD 22:24
PROVIDERS: ADMIT Hospitalist; ATTEND Hospitalist
DX: R55 Syncope and collapse (principal); I42.9 Cardiomyopathy, unspecified; E78.5 Hyperlipidemia, unspecified; J44.9 Chronic obstructive pulmonary disease, unspecified; S76.312A Strain of muscle, fascia and tendon of the posterior muscle group at thigh level, left thigh, initial encounter; G89.29 Other chronic pain; D64.9 Anemia, unspecified; N18.30 Chronic kidney disease, stage 3 unspecified; Z20.822 Contact with and (suspected) exposure to COVID-19; I12.9 Hypertensive chronic kidney disease with stage 1 through stage 4 chronic kidney disease, or unspecified chronic kidney disease; R10.9 Unspecified abdominal pain; M54.50 Low back pain, unspecified; Z79.82 Long term (current) use of aspirin; Z79.51 Long term (current) use of inhaled steroids; Z79.899 Other long term (current) drug therapy; Z90.710 Acquired absence of both cervix and uterus; Z87.891 Personal history of nicotine dependence; Z87.440 Personal history of urinary (tract) infections; Z86.73 Personal history of transient ischemic attack (TIA), and cerebral infarction without residual deficits; W18.30XA Fall on same level, unspecified, initial encounter; Y92.000 Kitchen of unspecified non-institutional (private) residence as the place of occurrence of the external cause; Z83.79 Family history of other diseases of the digestive system
CPT/HCPCS: 36415; 70450; 71045; 72125; 78582; 80053; 81001; 82607; 82746; 83036; 83735; 83880; 84443; 84484; 85025; 85379; 87635; 93005; 93270; 93306; 93970; 94640; 94760; 96360; 96361; 96372; 99285

== ENCOUNTER → 2022-08-01 | Outpatient (CLI) | payer MEDICARE ==
--- NOTE | 2022-08-01 16:06 | US ---
EXAMINATION TYPE: US renals and bladder DATE OF EXAM: 08/01/2022 COMPARISON: NONE CLINICAL HISTORY: N18.30 chronic kidney disease. CKD, no symptoms EXAM MEASUREMENTS: Right Kidney: 8.6 x 4.3 x 4.5 cm Left Kidney: not seen Right Kidney: No hydronephrosis or masses seen Left Kidney: obscured by bowel gas Bladder: wnl Bilateral Jets seen: No IMPRESSION: 1. No evidence of obstructive uropathy. 2. Nonvisualization of the left kidney.
== END | disposition home or self-care (01) ==
LOC: RADUSWWP 15:30
PROVIDERS: ATTEND Internal Medicine
DX: N18.30 Chronic kidney disease, stage 3 unspecified (principal)
CPT/HCPCS: 76770